=== PATIENT | female | born 1960 | race Caucasian/White ===

== ENCOUNTER 2016-12-26 15:29 | Outpatient (CLI) | payer MEDICAID ==
[2016-12-26 19:21] LABS: BASOPHILS % (AUTO) 0.1 %; EOSINOPHILS # (AUTO) 0.1 10^3/uL (0.0-0.7); HCT - HEMATOCRIT 42.5 % (37.0-47.0); LYMPHOCYTES # (AUTO) 2.9 10^3/uL (1.5-3.5); LYMPHOCYTES % (AUTO) 28.4 %; MEAN CORPUSCULAR HEMOGLOBIN 29.3 pg (27.0-31.0); MEAN CORPUSCULAR HGB CONC 32.9 g/dL (32.0-36.0); MEAN CORPUSCULAR VOLUME 89.3 fL (81.0-99.0); MEAN PLATELET VOLUME 9.1 fL (7.9-10.8); MONOCYTES # (AUTO) 0.5 10^3/uL (0.0-1.0); MONOCYTES % (AUTO) 4.9 %; NEUTROPHILS # (AUTO) 6.7 10^3/uL (1.5-6.6); NEUTROPHILS % (AUTO) 65.6 %; RED BLOOD COUNT 4.76 10^6/uL (4.20-5.40); RED CELL DISTRIBUTION WIDTH 13.8 % (12.0-15.0); UNCORRECTED WHITE BLOOD COUNT 10.2 x10^3/uL; WHITE BLOOD COUNT 10.2 x10^3/uL (4.8-10.8)
[2016-12-26 19:30] LABS: ALBUMIN/GLOBULIN RATIO 1.2 (1.0-2.2); BILIRUBIN,TOTAL 0.5 mg/dL (0.2-1.0); BUN - BLOOD UREA NITROGEN 16 mg/dL (6-20); CALCIUM 9.5 mg/dL (8.5-10.3); CARBON DIOXIDE - CO2 26 mmol/L (21-32); CHLORIDE 104 mmol/L (101-111); CHOL/HDL RATIO 3.6 (<4.4); CHOLESTEROL 200 mg/dL; CREATININE 0.9 mg/dL (0.4-1.0); GFR - MDRD 65 (>89); GLUCOSE 104 mg/dL (70-100); HDL CHOLESTEROL 56 mg/dL; LDL/HDL RATIO 2.1 (<4.4); POTASSIUM 4.3 mmol/L (3.5-5.0); SODIUM 138 mmol/L (135-145); TOTAL PROTEIN 7.8 g/dL (6.7-8.2); TRIGLYCERIDES 135 mg/dL; VLDL CHOLESTEROL 27 mg/dL
== END 2016-12-26 15:30 | disposition home or self-care (01) ==
LOC: LAB.N 15:29
PROVIDERS: ATTEND Nurse Practitioner Gerontology
DX: Z13.9 Encounter for screening, unspecified (principal)
CPT/HCPCS: 36415; 80053; 80061; 84443; 85025

== ENCOUNTER 2017-02-23 08:07 | Outpatient (CLI) | payer MEDICAID ==
[2017-02-23 13:15] LABS: CORTISOL 15.3 ug/dL
[2017-02-23 13:47] LABS: FOLLICLE STIMULATING HORMONE 72.93 mIU/mL
[2017-02-23 13:48] LABS: LUTEINIZING HORMONE 51.91 mIU/mL
== END 2017-02-23 08:08 | disposition home or self-care (01) ==
LOC: LAB.N 08:07
PROVIDERS: ATTEND Nurse Practitioner Gerontology
DX: N95.1 Menopausal and female climacteric states (principal)
CPT/HCPCS: 36415; 82533; 82670; 83001; 83002

== ENCOUNTER 2017-07-27 10:18 | Outpatient (CLI) | payer MEDICAID ==
[2017-07-27 12:56] LABS: ALBUMIN 4.1 g/dL (3.2-5.5); ALBUMIN/GLOBULIN RATIO 1.2 (1.0-2.2); ALKALINE PHOSPHATASE 42 IU/L (42-121); ALT ALANINE AMINOTRANSFERASE 26 IU/L (10-60); AST ASPARTATE AMINOTRANSFERASE 21 IU/L (10-42); BASOPHILS % (AUTO) 0.4 %; BILIRUBIN,TOTAL 0.4 mg/dL (0.2-1.0); BUN - BLOOD UREA NITROGEN 14 mg/dL (6-20); CALCIUM 8.9 mg/dL (8.5-10.3); CARBON DIOXIDE - CO2 25 mmol/L (21-32); CHLORIDE 105 mmol/L (101-111); CHOLESTEROL 206 mg/dL; CREATININE 0.8 mg/dL (0.4-1.0); EOSINOPHILS # (AUTO) 0.1 10^3/uL (0.0-0.7); EOSINOPHILS % (AUTO) 1.2 %; GFR - MDRD 74 (>89); GLUCOSE 87 mg/dL (70-100); HDL CHOLESTEROL 52 mg/dL; HGB - HEMOGLOBIN 14.1 g/dL (12.0-16.0); LDL CHOLESTEROL,CALCULATED 136 mg/dL; LDL/HDL RATIO 2.6 (<4.4); LYMPHOCYTES # (AUTO) 2.5 10^3/uL (1.5-3.5); MEAN CORPUSCULAR HEMOGLOBIN 29.5 pg (27.0-31.0); MEAN CORPUSCULAR HGB CONC 33.3 g/dL (32.0-36.0); MEAN CORPUSCULAR VOLUME 88.8 fL (81.0-99.0); MEAN PLATELET VOLUME 8.9 fL (7.9-10.8); MONOCYTES # (AUTO) 0.5 10^3/uL (0.0-1.0); MONOCYTES % (AUTO) 6.4 %; NEUTROPHILS # (AUTO) 5.2 10^3/uL (1.5-6.6); PLT - PLATELET COUNT 315 10^3/uL (130-450); RED BLOOD COUNT 4.76 10^6/uL (4.20-5.40); RED CELL DISTRIBUTION WIDTH 13.8 % (12.0-15.0); SODIUM 136 mmol/L (135-145); TOTAL PROTEIN 7.5 g/dL (6.7-8.2); VLDL CHOLESTEROL 18 mg/dL; WHITE BLOOD COUNT 8.3 x10^3/uL (4.8-10.8)
[2017-07-28 12:07] LABS: HIV AG/AB 4TH GEN NON-REACTIVE (NON-REACTIVE)
[2017-07-28 13:56] LABS: HEPATITIS C ANTIBODY NON-REACTIVE (NON-REACTIVE)
== END 2017-07-27 10:19 | disposition home or self-care (01) ==
LOC: LAB.N 10:18
PROVIDERS: ATTEND Nurse Practitioner Gerontology
DX: R53.83 Other fatigue (principal); Z20.5 Contact with and (suspected) exposure to viral hepatitis
CPT/HCPCS: 36415; 80050; 80061; 86803; 87389

== ENCOUNTER 2019-03-17 10:50 | Outpatient (CLI) | payer MEDICAID ==
[2019-03-17 12:03] VITALS: BP 100/70
--- NOTE | 2019-03-17 12:03 | SLEEP CARE CONSULTATION ---
Information from patient questionnaire entered by Elizabeth Menendez. I have reviewed and concur with the information entered by Elizabeth Menendez. This document represents the service I personally performed and the decisions made by me, Ayala Ba, RN, MSN, [employer] INTEGRATION DEVELOPER. History of Present Illness Reason for Visit: New patient Chief Complaint: reports: Unrefreshed sleep, Excessive daytime sleepiness, Fatigue, Frequent awakenings at night Duration of Symptoms: 2 YEARS and has noted increased with weight gain after smoking cessation. Usual bedtime: 9:30pm Time it takes to fall asleep: 30 MINUTES Snores at night: Yes (loud per stephanie at recent visit) Observed to quit breathing while asleep: Yes (per zaida at recent visit) Sleeps alone due to snoring: Yes (single) Number of times waking at night: 3-4 Reasons for waking at night: reports: Bathroom, Other (UNKNOWN - she will usually be able to return to sleep). denies: Choking, Snoring, Gasping for air, Pain Toss, Turn, or Twitch while sleeping: Yes Recalls having dreams: Yes Usually gets out of bed at: [id number] Feels refreshed in the morning: No Morning headache: No Sleepy or fatigued during the day: Yes Ever fallen asleep while driving: No Takes day naps: Yes Dreams during day naps: Yes Prior sleep studies: No - Parasomnia Symptoms Ever been unable to move upon waking from sleep: No Walks in sleep: No Talks in sleep: Yes (occasionally woken self up from talking) Ever acted out dreams in sleep: No Ever felt weak in the knees when startled or emotional: No Bothered by creepy, crawly, restless sensations in legs: Yes (a few nights a week that feels better when stretches ) Problems with memory or concentration: Yes Subjective Initial [place] Sleepiness Scale score: 9 Past Medical History Past Medical History: reports: Anxiety (GRADUATED FROM COUNSELING REGARDING THIS), Depression (denies suicide ideology) Social History 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 Patient is Single and lives in [place]. Have you smoked in the past 12 months: Yes (Quit May 30, 2018) Cigarettes per day (20/pack): 20 Years of smokin (OFF AND ON) Quit date: 05/2018 Smoking Pack Years: 30.0 Alcohol use: No Caffeine use: Yes Caffeine amount and frequency: 1-2 CUPS/DAY Family History Family history of sleep disordered breathing: Yes Family Hx Sleep Apnea: Father: Snoring, Sleep apnea - Untreated Allergies and Home Medications Known drug allergies: No Home medication list reviewed: Yes Allergy and home medication list: citalopram 30mg daily Vitamin D3, K2 unknown daily Krill oil daily chromium piconate daily Review of Systems Psychiatric: reports: anxiety, depression Ear/Nose/Throat: reports: wisdom teeth removed Endocrine: reports: sluggishness, too hot or cold (hot flashes from menopause ) Musculoskeletal: reports: muscle pain or cramping (calve cramps nightly since Keto diet) Physical Exam Blood Pressure: 100/70 Cuff size: long Heart Rate: 75 O2 Saturation: 96 Height: 5 ft 2 in Weight (kg): 192 lb 3.2 oz Body Mass Index: 35.2 BMI Classification: Class 2 HEENT: No craniofacial malformation Nostrils: partially obstructed (left nostril) Turbinates: swollen Septum: deviated right Mouth and throat: narrow oropharynx Soft palate: long Hard palate: normal Uvula: normal Uvula visualization: 25% Mallampati Class III Tongue: normal in size Tonsils: small Chin and jaw: normal size and position Neck: normal w/o lymphadenopathy or thyromegaly Heart: regular rate and rhythm Lungs: clear bilaterally Extremities: no edema or clubbing Neurologic: other: (alert and orientated) Impression and Plan 1. Suspected Obstructive Sleep Apnea-Hypopnea Syndrome, as suggested by a history of loud and irregular snoring, observed cessation of breath while asleep, frequent awakening during the night, unrefreshed sleep, cognitive impairment, and excessive daytime sleepiness. Narrow oropharynx and obesity are common predisposing factors for obstructive sleep apnea-hypopnea syndrome. I recommend proceeding to polysomnography to confirm the diagnosis and to assess severity. If the patient has significant sleep disordered breathing, a manual CPAP titration study will also be performed to find the optimal treatment pressure. I informed the patient of what the sleep studies involve and after some discussion, obtained agreement to proceed. The pathophysiology of obstructive sleep apnea-hypopnea syndrome was discussed with the patient and health risks of cardiovascular and cerebrovascular disease if not treated. AASM brochure for obstructive sleep apnea-hypopnea syndrome given and reviewed. Risks of drowsy driving discussed in detail and patient advised to avoid long distance driving and to bone char puller at the first sign of drowsiness. Patient agreed to plan. 2. Insomnia, due to unknown and too much time in bed. She was advised that most people require 7-9 hours of sleep and how too much time in bed can decrease sleep efficiency. Thus she is advised to reduce time in bed to 8 hours and get up at a regular time no matter how she slept. No napping unless over come with sleepiness and limited to one hour and before 3pm so not to interfere with nightime sleep. 3. Restless Leg Syndrome (RLS): as exhibited by an urge to move the legs and generally involves symptoms of uncomfortable and unpleasant sensations. Symptoms usually begin or worsen with inactivity or periods of rest such as sitting or lying down. These symptoms can be partially or completely relieved with movement such as stretching, walking or other movement. Generally they occur late in the evening or at bedtime. Sometimes the urge to move legs can be without discomfort or involve the arms and other parts of the body. Symptoms can cause patient concern and difficulty initiating sleep affecting daytime functioning. RLS is a sensorimotor disorder that can be hereditary and is often associated with PLMS periodic limb movement of sleep. It can also be secondary to mild iron deficiency (serum ferritin less than 50mcg - 75mcg/L) and magnesium deficiencies. Other medical conditions associated with RLS are narcolepsy, migraine headaches, chronic obstructive pulmonary disease, Parkinson disease, multiple sclerosis, peripheral neuropathy, obstructive sleep apnea, diabetes mellitus, fibromyalgia, rheumatoid arthritis, nocturnal eating, obesity, thyroid disease and heart disease and renal failure as well as mood disorders and ADHD. Also, medications such as most antidepressants with exception of bupropion, some centrally active dopamine receptor antagonists, sedating antihistamines such as Benadryl can precipitate or aggravate this disorder. Other factors that can increase symptoms are sleep deprivation, caffeine, nicotine and alcohol use. I recommend ruling out these conditions if not already done. AAS Restless Leg syndrome pamphlet given and reviewed. 4. Leg cramps, are painful sensations that are caused by sudden and intense involuntary contractions of the muscles or muscle groups from a spasm and hardness for several seconds that are generally in the calf of small muscle of the foot. These occur during time while in bed and can arise from sleep or wakefulness. The cramps may be relieved by massage, application of heat or stretching and movement of the affected limb. These can disrupt sleep and be a cause of insomnia. Cause of sleep related sleep cramps can be idiopathic or secondary to other medical conditions such as chronic myelopathy, peripheral neuropathy, muscular pain fasciculation syndrome and disorders of calcium metabolism. It is sometimes confused with restless leg syndrome, and the description of an actual spasm or hardening of the muscled is the critical differentiating factor for nocturnal leg cramps. Predisposing factors for leg cramps can include diabetes, amyotrophic lateral sclerosis, cramp fasciculation syndrome, peripheral vascular disease, hypokalemia, hypocalcemia, hypomagnes aemia, and metabolic disorders. Nocturnal leg cramps can also be associated with vigorous exercise, prolonged standing at work, dehydration, fluid and electrolyte disturbances, endocrine disorders, neuromuscular disorders, disorders of reduced mobility, vascular disease, cirrhosis, and hemodialysis. Nocturnal leg cramps can also be associated with medications such as oral contraceptives, intravenous iron sucrose, teriparatide, raloxifene, diuretics, long-acting B-agonists, and statins. ( preceding cramp information obtained from [facility]) I advised patient to follow up with her PCP for further evaluation and patient agreed with plan. * Schedule polysomnography +- manual CPAP titration study. * Avoid long distance driving or driving when feeling sleepy. * Avoid alcohol, sedative and muscle relaxant around bedtime. * Attempt to lose weight. * Review instructions provided by trained office staff on how to prepare for the sleep study. * Follow up with PCP for further evaluation of memory concerns , nocturnal leg cramps and RLS etiology. * Return for follow-up after sleep study completed. I spent 100% of this [15][30] minute visit face to face with the patient with greater than 50% of this was spent time counseling the patient and coordination of care.
== END 2019-03-17 10:51 | disposition home or self-care (01) ==
LOC: SC 10:50
PROVIDERS: ATTEND Nurse Practitioner Family
DX: G47.10 Hypersomnia, unspecified (principal); R06.81 Apnea, not elsewhere classified; G47.8 Other sleep disorders; R06.83 Snoring; R41.89 Other symptoms and signs involving cognitive functions and awareness; G47.00 Insomnia, unspecified
CPT/HCPCS: 99204; 99212

== ENCOUNTER 2019-04-06 20:38 | Outpatient (CLI) | payer MEDICAID | END 2019-04-06 20:39 | disposition home or self-care (01) | LOC: SC 20:38 | PROVIDERS: ATTEND Internal Medicine Pulmonary Disease | DX: G47.33 Obstructive sleep apnea (adult) (pediatric) (principal); G47.61 Periodic limb movement disorder; E66.9 Obesity, unspecified; Z68.35 Body mass index [BMI] 35.0-35.9, adult | CPT/HCPCS: 95810 ==

== ENCOUNTER 2019-04-28 16:08 | Outpatient (CLI) | payer MEDICAID ==
[2019-04-28 17:22] VITALS: BP 100/60
--- NOTE | 2019-04-28 17:23 | SLEEP CARE CONSULTATION ---
Information from patient questionnaire entered by Laila aDvis. I have reviewed and concur with the information entered by Laila Davis. This document represents the service I personally performed and the decisions made by me, Ayala Ba RN, MSN, HEALTH INFORMATICS SPECIALIST. History of Present Illness Initial [place] Sleepiness Scale score: 9 Current [place] Sleepiness Scale score: 8 Additional HPI information: SOBEIDA JONES returns for follow up of the recently performed polysomnography and informed of findings. I explained the pathophysiology behind obstructive sleep apnea. We then spent quite a bit of time discussing different treatment options. For mild obstructive sleep apnea, surgery and oral appliance are alternatives to nasal CPAP therapy but in moderate or severe cases, nasal CPAP is the most effective and reliable treatment. I reviewed the impact of weight changes on sleep apnea and strongly recommended losing weight. After some discussion, the patient opted to go with the nasal CPAP therapy. Nasal autoCPAP set at [id number] will be ordered with rationale explained. A manual titration study will be ordered if unable to find optimal pressure with office adjustments. I explained how CPAP machine works with sample devices [employer] Dreamstation and [id number] and what to expect when using the machine. Using CPAP every night in order to get used to it was emphasized. Patient advised to put CPAP mask on before getting into bed so as not to fall asleep without CPAP. To assist acclimation to CPAP use, it could also be used for a short time during day while reading or watching TV. The patient was instructed to call the CPAP supplier to discuss any mechanical problem that may occur. If the mask given is uncomfortable or is difficult to keep on through the night even with adjustment, contact the CPAP supplier as many will replace with another mask style if notified before 30 days. If snoring or perceives is not getting enough air or too much air from the machine, notify this office. AAS patient education PAP tips reviewed and given to patient. Patient counseled not drink alcohol less than 4 hours before bedtime as it can increase snoring and apnea. Patient does not drink alcohol. Patient was cautioned about risks of drowsy driving until sleepiness symptoms resolve. Patient denies drowsy driving. Sleep Study - Polysomnography Polysomnography findings: The quality of the study is good. The patient had normal sleep efficiency. Except for mild sleep fragmentation, the sleep architecture was normal as well.. Respiratory monitoring showed mild obstructive sleep apnea-hypopnea (AHI = 11.0) associated with frequent arousals, oxyhemoglobin desaturation and mild hypoxia (reema oxygen saturation of 87%). The respiratory events occurred mainly during supine sleep and REM sleep (supine AHI = 38.9; non-supine = 5.77). Snore was moderate in intensity. There was moderate periodic leg movement of sleep contributing to the sleep fragmentation. Cardiac rhythm was normal sinus rhythm without significant arrhythmia. No abnormal behavior (parasomnia) observed during the night. Allergies and Home Medications Known drug allergies: No Home medication list reviewed: Yes (no changes from initial visit. ) Review of Systems Review of systems same as previous: Yes Physical Exam Blood Pressure: 100/60 Cuff size: long Heart Rate: 80 O2 Saturation: 96 Height: 5 ft 2 in Weight: 193 lb 12.8 oz Body Mass Index: 35.4 BMI Classification: Obesity Class 2 Impression and Plan 1. Obstructive Sleep Apnea-Hypopnea Syndrome, mild but severe in supine position, with lowest oxygen saturation of 97%. Possibly this is the cause of the patients symptoms of unrefreshed sleep, and excessive daytime sleepiness. Positive pressure therapy could benefit her anxiety and depression. As mentioned above, the patient will be started on nasal autoCPAP therapy with pressure set at 4-15 cmH2O. A manual titration study will be completed if unable to find optimal treatment pressure with office adjustments. Compliance guidelines also reviewed. A copy of compliance guidelines will be given for reference at check out. Because the apnea is more severe supine, I instructed to avoid sleeping supine using pillow positioning until able to start CPAP use. 2. Periodic limb movement, moderate, that did not fragment patients sleep. Periodic limb movement of sleep (PLMS) is characterized by episodes of repetitive limb movements that occur during sleep and usually involve the lower limbs. The etiology is unknown but can be associated with restless leg syndrome (RLS), neuropathy, spinal cord diseases, kidney disease, rheumatological disorders, narcolepsy, obstructive sleep apnea, and REM sleep behavior disorder. Other factors that can increase PLMS and/or RLS are heredity and iron deficiency as reflected by a low serum ferritin level below 50 to 75mcg / L. Several medications can precipitate or aggravate PLMS such as selective serotonin re- uptake inhibitor antidepressants, tricyclic antidepressants, lithium, and dopamine receptor antagonists with the exception of bupropion. Caffeine can also aggravate PLMS and should be avoided. Sleep hygiene methods can also improve sleep as well as lifestyle changes such as regular exercise. Patient was advised that further evaluation is indicated due to RLS symptoms 4-5 times a week. She is to follow up with PCP for further evaluation to see if from iron deficiency anemia or from her antidepressant. Bupropion is the only antidepressant that does not augment symptoms. Nasal auto CPAP therapy, pressure at 4-15cm H2O. * Attempt to lose weight. * Avoid alcohol consumption near bedtime. * Avoid supine sleep until using CPAP. * The patient is again cautioned about driving until sleepiness completely resolves. * Follow up with PCP for further evaluation of PLMS / RLS etiology as noted above. * Return one month after CPAP obtained. I will assess response to therapy and compliance at that time. I spent 100% of this 37 minute visit face to face with the patient with greater than 50% of this was spent time counseling the patient and coordination of care.
== END 2019-04-28 16:09 | disposition home or self-care (01) ==
LOC: SC 16:08
PROVIDERS: ATTEND Nurse Practitioner Family
DX: G47.33 Obstructive sleep apnea (adult) (pediatric) (principal); G47.61 Periodic limb movement disorder; E66.9 Obesity, unspecified; Z68.35 Body mass index [BMI] 35.0-35.9, adult
CPT/HCPCS: 99212; 99214

== ENCOUNTER 2019-05-07 10:36 | Outpatient (CLI) | payer MEDICAID ==
--- NOTE | 2019-05-08 09:53 | CT Report ---
Reason: TOBACCO DEPENDENCE Procedure Date: 05/07/2019 Accession Number: [id number] / [id number] Procedure: CT - Low Dose Lung Cancer Screen CPT Code: FULL RESULT: EXAM CT LUNG SCREEN EXAM DATE: 05/07/2019 10:55 AM. HISTORY: 58-year-old patient with 35-year smoking history. Currently smoking: No. Years since quittin. COMPARISON: None. TECHNIQUE: CT examination of the entire thorax without contrast was performed using low-dose technique. Thin section coronal, axial, sagittal and MIP axial images were obtained. In accordance with CT protocol optimization, one or more of the following dose reduction techniques were utilized for this exam: automated exposure control, adjustment of mA and/or KV based on patient size, or use of iterative reconstructive technique. FINDINGS: Nodules: Right upper lobe: None. Right middle lobe: None. Right lower lobe: None. Left upper lobe: 3 mm calcified granuloma in the superior lingula (). Left lower lobe: None. Emphysema: None. Pleura: Unremarkable. Aorta: 4.2 cm diameter fusiform ectasia of the ascending aorta. Mild calcification in the ascending aorta. No aortic valve calcification. Mediastinum: Unremarkable. Coronary calcifications: Mild LAD. Other pulmonary findings: Tiny subpleural lymph node along the minor fissure (65, ). Minimal bandlike scarring or atelectasis in the right middle lobe and lingula. Other extrapulmonary findings: Tiny layering calcified gallstones. Mild multilevel mid to lower thoracic degenerative disk disease. IMPRESSION: 1. 3 mm calcified granuloma in the superior lingula. 2. 4.2 cm diameter fusiform ectasia of the ascending aorta. 3. Mild LAD coronary artery calcification. 4. Cholelithiasis. Lung-RADS ASSESSMENT CATEGORY: Oh - benign appearance or behavior. Probability of malignancy: Less than 1%. RECOMMENDATION: Annual low-dose lung CT screening. [facility]
== END 2019-05-07 10:37 | disposition home or self-care (01) ==
LOC: DI 10:36
PROVIDERS: ATTEND Nurse Practitioner Gerontology
DX: Z12.2 Encounter for screening for malignant neoplasm of respiratory organs (principal); J84.10 Pulmonary fibrosis, unspecified; I77.810 Thoracic aortic ectasia; I25.10 Atherosclerotic heart disease of native coronary artery without angina pectoris; K80.20 Calculus of gallbladder without cholecystitis without obstruction; Z87.891 Personal history of nicotine dependence

== ENCOUNTER 2019-11-10 16:51 | Outpatient (CLI) | payer MEDICAID ==
--- NOTE | 2019-11-10 16:38 | SLEEP CARE CONSULTATION ---
Information from patient questionnaire entered by Elizabeth Menendez. I have reviewed and concur with the information entered by Elizabeth Menendez. This document represents the service I personally performed and the decisions made by me, Ayala Ba, RN, MSN, GRAPE GROWER. History of Present Illness Service Date and Time: 11/10/2019 1600 Previous diagnosis: Mild, Obstructive Sleep Apnea-Hypopnea Syndrome AHI: 11.0 Reason for follow up: first compliance Equipment type: CPAP Equipment obtained from: [employer] Mask style: Full face Backup mask available: No (please keeep current mask as a spare when replaced) Last cushion change: not since set up - insurance replacement is not for 3 months Type of Sleep Study: Polysomnography CPAP Compliance Data - Data Reviewed with Patient Average duration of nightly device use: 9H 0M Compliance rate %: 100 Current pressure setting (cmH2O): 4-15 Humidity setting: ? Heated hose setting: ? Average residual AHI: 3.2 (med 7.1cm / 95th % 10.9cmH20) Average large leak: zero Subjective Patient concerns: reports: condensation in mask/hose (mild in mask ). denies: aerophagia, mask discomfort, air blowing in eyes, mask leak noise, nasal congestion, dry mouth, nose, throat, epistaxis, other Observed to snore while using device: No (single ) Current pressure setting perceived as: comfortable On therapy, patient: reports: sleeping better, awakening more refreshed, being more awake and alert during the day, more rested overall. denies: drowsiness while driving Initial [place] Sleepiness Scale score: 9 Allergies and Home Medications Home medication list reviewed: No (started Well butrin and stopped amytriptyline as not needed for sleep) Review of Systems Review of systems same as previous: Yes Physical Exam Height: 5 ft 2 in Weight: 198 lb (home weight) Body Mass Index: 36.2 BMI Classification: Obese Impression and Plan 1. Obstructive Sleep Apnea-Hypopnea Syndrome, mild , with good treatment compliance and good apnea control. On CPAP therapy, the patient has better sleep quality and is more rested overall. Patient is very pleased with CPAP treatment. In fact, she was able to stop use of amitriptyline used previously to get to sleep. To reduce condensation, I will have [employer] call to verbally instruct how to adjust settings. Rationale of why to change settings discussed. Patient has gained weight. About 10 pounds increasing patients BMI to 36.2 obesity class . Obesity increases the risk of apnea, CPAP pressure requirements and overall health risks especially cardiovascular and diabetes. Thus patient is advised to continue to lose weight. Weight loss can be done with reducing portion size, reducing refined foods and balancing content with vegetables, fruit and protein. In addition tracking food intake will allow awareness of how to modify diet to achieve weight loss goals. Also eating more slowly will allow more awareness of food intake and enjoyment of food while assisting patient to modify intake at each meal. A diet consultation can be helpful in achieving optimal weight loss goals. Patient encouraged to discuss their weight loss goa ls with their PCP and consider a referral to a roller. Patient agreed with plan. The patient's CPAP pressure range should accommodate some weight loss. Symptoms to report for additional pressure adjustment discussed. Patient's apnea severity and rationale for treatment to reduce apnea, improve sleep quality and reduce hypertension, cardiovascular and cerebrovascular events was reviewed. * Changeauto CPAP pressure to 7-11 cmH2O * Notify me if snoring with mask or feeling that the pressure is too much or too little * Attempt to lose weight * Call this office if any problems using CPAP * Return for follow up in 3 months , or sooner if concerns arise Visit Type: Telehealth Video (to reduce risk of Covid 19 exposure) Video Type: [employer] Location of Provider: Home Patient agrees and consents to this telehealth visit type: Yes Patient agrees to have their insurance billed: Yes Time Spent with Patient (minutes): 20 Provider Statement: I spent 100% of the Telehealth Video Call with the patient with greater than 50% spent counseling the patient and coordination of care.
== END 2019-11-10 16:52 | disposition home or self-care (01) ==
LOC: SC 16:51
PROVIDERS: ATTEND Nurse Practitioner Family
DX: G47.33 Obstructive sleep apnea (adult) (pediatric) (principal); E66.9 Obesity, unspecified; Z68.36 Body mass index [BMI] 36.0-36.9, adult

== ENCOUNTER 2020-02-11 14:48 | Outpatient (CLI) | payer MEDICAID ==
[2020-02-11 15:22] VITALS: BP 110/78
--- NOTE | 2020-02-11 15:22 | SLEEP CARE CONSULTATION ---
Information from patient questionnaire entered by Elizabeth Menendez. I have reviewed and concur with the information entered by Elizabeth Menendez. This document represents the service I personally performed and the decisions made by me, Ayala Ba, RN, MSN, TOWBOAT OPERATOR. History of Present Illness Service Date and Time: 02/11/2020 1448 Previous diagnosis: Mild, Obstructive Sleep Apnea-Hypopnea Syndrome AHI: 11 Reason for follow up: three month (with pressure change) Equipment type: CPAP Equipment obtained from: [employer] (getting supplies) Mask style: Full face Backup mask available: No (keep current mask when replaced as spare ) Last cushion change: 2 weeks ago Prior sleep studies: Yes [facility] Type of Sleep Study: Polysomnography HPI additional information: Condensation resolved. CPAP Compliance Data - Data Reviewed with Patient Average duration of nightly device use: 8h 18m Compliance rate %: 100 Current pressure setting (cmH2O): 7-11 Humidity setting: auto Heated hose setting: auto Average residual AHI: 2.8 (95th pressure 10.6cmH20) Average large leak: zero Subjective Patient concerns: denies: aerophagia, mask discomfort, air blowing in eyes, mask leak noise, condensation in mask/hose, nasal congestion, dry mouth, nose, throat, epistaxis Initial [place] Sleepiness Scale score: 9 Allergies and Home Medications Known drug allergies: No Home medication list reviewed: No (no changes ) Review of Systems Review of systems same as previous: Yes Physical Exam Blood Pressure: 110/78 Cuff size: long Heart Rate: 71 O2 Saturation: 98 Height: 5 ft 2 in Weight: 189 lb Weight change since last visit: lost 15 pounds since starting CPAP Body Mass Index: 34.5 BMI Classification: Obese Impression and Plan 1. Obstructive Sleep Apnea-Hypopnea Syndrome, mild, with good treatment compliance and good apnea control. On CPAP therapy, the patient has better sleep quality and is more rested overall. Since patient has more severe apnea in supine position, patient advised to avoid supine sleep with pillow positioning if unable to use CPAP while ill or if without electricity to reduce apnea risk. Patient has lost 15 pounds since starting CPAP and plans on losing 40 more pounds bringing BMI to 29. I again reviewed symptoms to report for pressure change if indicated as she continues to lose weight. Her current pressure range should accomodate some weight loss. Patient's apnea severity and rationale for treatment to reduce apnea, improve sleep quality and reduce cardiovascular and cerebrovascular events was reviewed. I also reviewed the benefit of consistent device use of CPAP for depression/anxiety. She has noted the ability to pursue activities now and more energy to engage in physical activity. * Continue auto CPAP pressure at 7-11 cmH2O * Notify me if snoring with mask or feeling that the pressure is too much or too little * Continue to lose weight * Call this office if any problems using CPAP * Return for follow up in 6 months , or sooner if concerns arise Visit Type: In Office Time Spent with Patient (minutes): 20 Provider Statement: I spent 100% of the Face to Face Visit with the patient with greater than 50% spent counseling the patient and coordination of care.
== END 2020-02-11 14:49 | disposition home or self-care (01) ==
LOC: SC 14:48
PROVIDERS: ATTEND Nurse Practitioner Family
DX: G47.33 Obstructive sleep apnea (adult) (pediatric) (principal); E66.9 Obesity, unspecified; Z68.34 Body mass index [BMI] 34.0-34.9, adult
CPT/HCPCS: 99212; 99213

== ENCOUNTER 2020-09-17 19:11 | Emergency (ER) | payer MEDICAID ==
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
[2020-09-17 19:46] LABS: BASOPHILS % (AUTO) 0.1 %; EOSINOPHILS # (AUTO) 0.2 10^3/uL (0.0-0.7); EOSINOPHILS % (AUTO) 2.3 %; HCT - HEMATOCRIT 41.2 % (37.0-47.0); HGB - HEMOGLOBIN 13.5 g/dL (12.0-16.0); LYMPHOCYTES # (AUTO) 2.7 10^3/uL (1.5-3.5); LYMPHOCYTES % (AUTO) 29.7 %; MEAN CORPUSCULAR HEMOGLOBIN 29.9 pg (27.0-31.0); MEAN CORPUSCULAR HGB CONC 32.8 g/dL (32.0-36.0); MEAN CORPUSCULAR VOLUME 91.2 fL (81.0-99.0); MEAN PLATELET VOLUME 9.4 fL (7.9-10.8); MONOCYTES # (AUTO) 0.7 10^3/uL (0.0-1.0); MONOCYTES % (AUTO) 7.2 %; NEUTROPHILS # (AUTO) 5.5 10^3/uL (1.5-6.6); NEUTROPHILS % (AUTO) 60.2 %; PLT - PLATELET COUNT 358 10^3/uL (130-450); RED BLOOD COUNT 4.52 10^6/uL (4.20-5.40); RED CELL DISTRIBUTION WIDTH 13.2 % (12.0-15.0); WHITE BLOOD COUNT 9.2 x10^3/uL (4.8-10.8)
[2020-09-17 19:58] LABS: ALBUMIN 4.3 g/dL (3.2-5.5); ALBUMIN/GLOBULIN RATIO 1.2 (1.0-2.2); BILIRUBIN,TOTAL 0.4 mg/dL (0.2-1.0); CREATININE 1.2 mg/dL (0.4-1.0); POTASSIUM 3.9 mmol/L (3.5-5.0); TOTAL PROTEIN 7.8 g/dL (6.7-8.2)
--- NOTE | 2020-09-17 20:25 | CT Report ---
PROCEDURE: HEAD WO INDICATIONS: headache TECHNIQUE: Noncontrast 4.5 mm thick angled axial sections acquired from the foramen magnum to the vertex. For r adiation dose reduction, the following was used: automated exposure control, adjustment of mA and/or kV according to patient size. COMPARISON: None. FINDINGS: Image quality: Excellent. CSF spaces: Basal cisterns are patent. No extra-axial fluid collections. Ventricles are normal in size and shape. Brain: No midline shift. No intracranial masses or hemorrhage. [place]o-white matter interface is norm al. Skull and face: Calvarium and visualized facial bones are intact, without suspicious lesions. Mild left temporal soft tissue edema suggests of contusion. Sinuses: Visualized sinuses and mastoids are clear. IMPRESSION: 1. No acute intracranial process. 2. Mild left temporal soft tissue edema. Reviewed by: Sasha Pineda MD on 09/17/2020 8:24 PM PST Approved by: Sasha Pineda MD on 09/17/2020 8:24 PM PST Station ID: [id number]
[2020-09-17 20:39] VITALS: BP 140/70
== END 2020-09-17 20:38 | disposition home or self-care (01) ==
LOC: ED 19:11
DX: R42 Dizziness and giddiness (principal); S09.90XA Unspecified injury of head, initial encounter; W18.39XA Other fall on same level, initial encounter; W22.8XXA Striking against or struck by other objects, initial encounter; Y93.01 Activity, walking, marching and hiking; Y92.832 Beach as the place of occurrence of the external cause
CPT/HCPCS: 36415; 80053; 85025; 93005; 99284

== ENCOUNTER 2020-11-26 08:00 | Outpatient (CLI) | payer MEDICAID ==
[2020-11-26 17:51] LABS: BASOPHILS % (AUTO) 0.3 %; EOSINOPHILS # (AUTO) 0.2 10^3/uL (0.0-0.7); EOSINOPHILS % (AUTO) 1.7 %; HCT - HEMATOCRIT 44.1 % (37.0-47.0); HGB - HEMOGLOBIN 13.8 g/dL (12.0-16.0); LYMPHOCYTES # (AUTO) 2.5 10^3/uL (1.5-3.5); LYMPHOCYTES % (AUTO) 28.4 %; MEAN CORPUSCULAR HEMOGLOBIN 29.2 pg (27.0-31.0); MEAN CORPUSCULAR HGB CONC 31.3 g/dL (32.0-36.0); MEAN CORPUSCULAR VOLUME 93.2 fL (81.0-99.0); MEAN PLATELET VOLUME 10.5 fL (7.9-10.8); MONOCYTES # (AUTO) 0.6 10^3/uL (0.0-1.0); MONOCYTES % (AUTO) 6.4 %; NEUTROPHILS # (AUTO) 5.5 10^3/uL (1.5-6.6); NEUTROPHILS % (AUTO) 62.6 %; PLT - PLATELET COUNT 379 10^3/uL (130-450); RED BLOOD COUNT 4.73 10^6/uL (4.20-5.40); RED CELL DISTRIBUTION WIDTH 13.2 % (12.0-15.0); WHITE BLOOD COUNT 8.8 x10^3/uL (4.8-10.8)
[2020-11-26 18:11] LABS: ALBUMIN 4.6 g/dL (3.2-5.5); ALBUMIN/GLOBULIN RATIO 1.4 (1.0-2.2); ALKALINE PHOSPHATASE 44 IU/L (42-121); ALT ALANINE AMINOTRANSFERASE 32 IU/L (10-60); AST ASPARTATE AMINOTRANSFERASE 26 IU/L (10-42); BILIRUBIN,TOTAL 0.9 mg/dL (0.2-1.0); BUN - BLOOD UREA NITROGEN 13 mg/dL (6-20); CALCIUM 9.7 mg/dL (8.5-10.3); CARBON DIOXIDE - CO2 27 mmol/L (21-32); CHLORIDE 100 mmol/L (101-111); CHOL/HDL RATIO 3.8 (<4.4); CHOLESTEROL 239 mg/dL; CREATININE 0.8 mg/dL (0.4-1.0); GFR - MDRD 73 (>89); GLUCOSE 94 mg/dL (70-100); HDL CHOLESTEROL 63 mg/dL; LDL CHOLESTEROL,CALCULATED 156 mg/dL; LDL/HDL RATIO 2.5 (<4.4); POTASSIUM 4.3 mmol/L (3.5-5.0); SODIUM 138 mmol/L (135-145); TOTAL PROTEIN 7.9 g/dL (6.7-8.2); TRIGLYCERIDES 102 mg/dL; VLDL CHOLESTEROL 20 mg/dL
[2020-11-26 18:20] LABS: THYROID STIMULATING HORMONE 1.07 uIU/mL (0.34-5.60)
== END 2020-11-26 08:01 | disposition home or self-care (01) ==
LOC: LAB.WCP 08:00
PROVIDERS: ATTEND Physician Assistant Medical
DX: Z00.00 Encounter for general adult medical examination without abnormal findings (principal); E78.00 Pure hypercholesterolemia, unspecified
CPT/HCPCS: 36415; 80050; 80061; 83721

== ENCOUNTER 2021-08-09 11:27 | Emergency (ER) | payer MEDICAID ==
[2021-08-09 11:47] VITALS: BP 128/76
--- NOTE | 2021-08-09 12:06 | ED Physician Documentation ---
History of Present Illness - Stated complaint Stated Complaint: CHEST PX/PULSING/SOA - Chief complaint Chief Complaint: General - History obtained from History obtained from: Patient - History of Present Illness Timing: Today - Additonal information Additional information: 60-year-old female who has a lot of underlying stress and has developed anxiety and anxiety attacks is developed numbness and tingling to her fingertips and some pain in her forearms and arms. She was asked by her friend to come to the emergency department for evaluation when she developed the cramping in the arms. She has had similar similar symptoms repeatedly with the exception of the arm cramping since her daughter of a drug overdose more than a year ago. She is taking care of her grandchildren and her father. Review of Systems Constitutional: denies: Fever Eyes: denies: Decreased vision Ears: denies: Ear pain Throat: denies: Sore throat Cardiac: reports: Chest pain / pressure. denies: Palpitations Respiratory: denies: Dyspnea, Cough GI: denies: Abdominal Pain, Nausea, Vomiting : denies: Dysuria, Frequency, Discharge Skin: denies: Rash Musculoskeletal: reports: Extremity pain. denies: Neck pain, Back pain Neurologic: reports: Numbness. denies: Generalized weakness, Focal weakness, Difficulty speaking, Altered mental status, Headache, Head injury, LOC PD PAST MEDICAL HISTORY - Past Medical History Psych: Depression - Past Surgical History Past Surgical History: No - Present Medications Home Medications: Ambulatory Orders Medication Instructions Recorded Confirmed LORazepam [Ativan] 1 mg PO Q6HR PRN #14 tablet 08/09/21 - Allergies Allergies/Adverse Reactions: Allergies Allergy/AdvReac Type Severity Reaction Status Date / Time No Known Drug Allergies Allergy Verified 09/17/20 19:23 - Social History Does the pt smoke?: No Does the pt drink ETOH?: No Does the pt have substance abuse?: No - Immunizations Immunizations are current?: Yes PD ED PE NORMAL - Vitals Vital signs reviewed: Yes (Normal) - General General: Alert and oriented X 3, No acute distress, Well developed/nourished - HEENT HEENT: Atraumatic, PERRL, EOMI - Neck Neck: Supple, no meningeal sign, No bony TTP - Cardiac Cardiac: RRR, No murmur - Respiratory Respiratory: No respiratory distress, Clear bilaterally - Abdomen Abdomen: Soft, Non tender - Back Back: No CVA TTP, No spinal TTP - Derm Derm: Normal color, Warm and dry, No rash - Extremities Extremities: No deformity, No edema - Neuro Neuro: Alert and oriented X 3, enlisted advisor 2-12 intact, No motor deficit, No sensory deficit, Normal speech Eye Opening: Spontaneous Motor: Obeys Commands Verbal: Oriented GCS Score: 15 - Psych Psych: Normal mood, Normal affect Results - Vitals Vitals: Vital Signs - 24 hr 08/09/21 11:36 Temperature 36.6 C Heart Rate 76 Respiratory 18 Rate Blood Pressure 128/76 O2 Saturation 98 Oxygen O2 Source Room air - EKG (time done) 1207 Rate: Rate (enter#) (67) Rhythm: NSR Ischemia: Normal ST segments Compare to prior EKG: Unchanged from prior EKG (SPT 09-17-20 no changes) Computer interpretation: Agree with computer PD MEDICAL DECISION MAKING - ED course Complexity details: reviewed old records, reviewed results, re-evaluated patient, considered differential, d/w patient ED course: 60-year-old female with a history of anxiety and panic attacks presents to the emergency department at the insistence of her friend for pain in her upper arms and forearms. She is describing carpopedal spasm associated with hyperventilation syndrome and she is currently asymptomatic. She is relieved to have some medication to treat her acute anxiety. She has had medication for chronic anxiety both citalopram and bupropion. She is having breakthrough anxie ty on those medications and she has an appointment to see Nadira Jordan on the . I discussed with the patient the nature of hyperventilation syndrome and she is quite confident her symptoms are all related to this. I have offered to prescribe a as needed course of Ativan and the patient is grateful for this. Departure - Departure Disposition: Home, Self Care Clinical Impression: Hyperventilation syndrome Condition: Stable Instructions: ED Stress React, ED Hyperventilation Syndrome, ED Panic Attack Follow-Up: Nguyen Jordan PA-C [Primary Care Provider] - Prescriptions: LORazepam [Ativan] 1 mg PO Q6HR PRN #14 tablet PRN Reason: Anxiety Comments: Venir, today in the emergency department it appears your suffering from hyperventilation syndrome. This occurs from breathing too fast for too long under stress. The symptoms can be ameliorated by use of rebreathing your same air. On days when you have significant symptoms I have prescribed some medication to reduce symptoms. This medication is effective but temporary. It has been e-scribed to [facility] in [place]. Follow up with Nguyen Jordan as planned. Discharge Date/Time: 08/09/21 12:31
== END 2021-08-09 12:31 | disposition home or self-care (01) ==
LOC: ED 11:27
DX: F45.8 Other somatoform disorders (principal); F41.9 Anxiety disorder, unspecified
CPT/HCPCS: 93005; 99283

== ENCOUNTER 2021-09-14 13:13 | Outpatient (CLI) | payer MEDICAID ==
--- NOTE | 2021-09-14 13:58 | XRAY Report ---
PROCEDURE: Chest 2 View X-Ray INDICATIONS: SOB TECHNIQUE: 2 view(s) of the chest. COMPARISON: None. FINDINGS: SUPPORT DEVICES: None. LUNGS/PLEURA: No focal consolidation, pleural effusion or space-occupying pneumothorax. MEDIASTINUM: The cardiomediastinal silhouette is within normal limits. BONES/SOFT TISSUES: No acute abnormality. IMPRESSION: 1.No acute cardiopulmonary abnormality. Reviewed by: Lazarus Valladares MD on 09/14/2021 1:57 PM [facility] Approved by: Lazarus Valladares MD on 09/14/2021 1:57 PM [facility] Station ID: [id number]
== END 2021-09-14 23:59 | disposition home or self-care (01) ==
LOC: DI.N 13:13
PROVIDERS: ATTEND Physician Assistant Medical
DX: R06.02 Shortness of breath (principal); Z86.16 Personal history of COVID-19

== ENCOUNTER 2021-10-28 09:47 | Outpatient (CLI) | payer MEDICAID ==
[2021-10-28 12:34] LABS: BASOPHILS % (AUTO) 0.2 %; EOSINOPHILS # (AUTO) 0.2 10^3/uL (0.0-0.7); EOSINOPHILS % (AUTO) 2.4 %; HCT - HEMATOCRIT 42.7 % (37.0-47.0); HGB - HEMOGLOBIN 13.9 g/dL (12.0-16.0); LYMPHOCYTES # (AUTO) 2.4 10^3/uL (1.5-3.5); LYMPHOCYTES % (AUTO) 29.5 %; MEAN CORPUSCULAR HEMOGLOBIN 29.5 pg (27.0-31.0); MEAN CORPUSCULAR HGB CONC 32.6 g/dL (32.0-36.0); MEAN CORPUSCULAR VOLUME 90.7 fL (81.0-99.0); MEAN PLATELET VOLUME 10.4 fL (7.9-10.8); MONOCYTES # (AUTO) 0.5 10^3/uL (0.0-1.0); MONOCYTES % (AUTO) 6.1 %; NEUTROPHILS # (AUTO) 4.9 10^3/uL (1.5-6.6); NEUTROPHILS % (AUTO) 61.4 %; PLT - PLATELET COUNT 383 10^3/uL (130-450); RED BLOOD COUNT 4.71 10^6/uL (4.20-5.40); RED CELL DISTRIBUTION WIDTH 13.5 % (12.0-15.0)
[2021-10-28 12:41] LABS: ALBUMIN 4.2 g/dL (3.2-5.5); ALBUMIN/GLOBULIN RATIO 1.2 (1.0-2.2); ALKALINE PHOSPHATASE 42 IU/L (42-121); ALT ALANINE AMINOTRANSFERASE 27 IU/L (10-60); AST ASPARTATE AMINOTRANSFERASE 20 IU/L (10-42); BILIRUBIN,TOTAL 0.5 mg/dL (0.2-1.0); BUN - BLOOD UREA NITROGEN 11 mg/dL (6-20); CALCIUM 9.3 mg/dL (8.5-10.3); CARBON DIOXIDE - CO2 27 mmol/L (21-32); CHLORIDE 103 mmol/L (101-111); CHOL/HDL RATIO 4.1 (<4.4); CHOLESTEROL 213 mg/dL; CREATININE 0.9 mg/dL (0.4-1.0); GFR - MDRD 64 (>89); GLUCOSE 116 mg/dL (70-100); HDL CHOLESTEROL 52 mg/dL; LDL CHOLESTEROL,CALCULATED 131 mg/dL; LDL/HDL RATIO 2.5 (<4.4); POTASSIUM 4.4 mmol/L (3.5-5.0); SODIUM 140 mmol/L (135-145); TOTAL PROTEIN 7.7 g/dL (6.7-8.2); TRIGLYCERIDES 150 mg/dL; VLDL CHOLESTEROL 30 mg/dL
[2021-10-28 12:51] LABS: THYROID STIMULATING HORMONE 0.99 uIU/mL (0.34-5.60)
== END 2021-10-28 23:59 | disposition home or self-care (01) ==
LOC: LAB.N 09:47
PROVIDERS: ATTEND Physician Assistant Medical
DX: Z00.00 Encounter for general adult medical examination without abnormal findings (principal); E78.00 Pure hypercholesterolemia, unspecified
CPT/HCPCS: 36415; 80050; 80061; 83721

== ENCOUNTER 2022-03-19 13:15 | Emergency (ER) | payer OTHER, MEDICAID ==
[2022-03-19 13:48] VITALS: BP 146/89
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
--- NOTE | 2022-03-19 15:52 | XRAY Report ---
PROCEDURE: Shoulder 3 View LT INDICATIONS: shoulder inj TECHNIQUE: 3 views of the shoulder were acquired. COMPARISON: None. FINDINGS: Bones: No acute fractures or dislocations. No suspicious bony lesions. Visualized ribs appear inta ct. Moderate joint space narrowing is seen in the glenoid humeral joint. Moderate periventricular de generative changes. Soft tissues: No suspicious soft tissue calcifications. IMPRESSION: Moderate glenohumeral and acromioclavicular osteoarthrosis. No acute osseous abnormality. If symptoms persist or there is continued clinical concern, further asmita luation with MRI or CT may be helpful. Reviewed by: Rajinder Schwartz MD on 03/19/2022 2:51 PM [facility] Approved by: Rajinder Schwartz MD on 03/19/2022 2:51 PM [facility] Station ID: [id number]
== END 2022-03-19 16:05 | disposition home or self-care (01) ==
LOC: ED 13:15
DX: S40.012A Contusion of left shoulder, initial encounter (principal); V49.40XA Driver injured in collision with unspecified motor vehicles in traffic accident, initial encounter; Y93.89 Activity, other specified
CPT/HCPCS: 99282; 99283

== ENCOUNTER 2022-09-24 15:52 | Emergency (ER) | payer MEDICAID ==
[2022-09-24 18:48] LABS: BASOPHILS % (AUTO) 0.2 %; EOSINOPHILS # (AUTO) 0.2 10^3/uL (0.0-0.7); HCT - HEMATOCRIT 43.5 % (37.0-47.0); HGB - HEMOGLOBIN 13.6 g/dL (12.0-16.0); LYMPHOCYTES # (AUTO) 3.3 10^3/uL (1.5-3.5); LYMPHOCYTES % (AUTO) 33.5 %; MEAN CORPUSCULAR HGB CONC 31.3 g/dL (32.0-36.0); MEAN CORPUSCULAR VOLUME 89.5 fL (81.0-99.0); MEAN PLATELET VOLUME 9.7 fL (7.9-10.8); MONOCYTES # (AUTO) 0.6 10^3/uL (0.0-1.0); MONOCYTES % (AUTO) 5.8 %; NEUTROPHILS # (AUTO) 5.7 10^3/uL (1.5-6.6); NEUTROPHILS % (AUTO) 58.1 %; PLT - PLATELET COUNT 360 10^3/uL (130-450); RED BLOOD COUNT 4.86 10^6/uL (4.20-5.40); RED CELL DISTRIBUTION WIDTH 13.5 % (12.0-15.0); WHITE BLOOD COUNT 9.8 x10^3/uL (4.8-10.8)
[2022-09-24 19:01] LABS: ALBUMIN 4.1 g/dL (3.2-5.5); ALBUMIN/GLOBULIN RATIO 1.2 (1.0-2.2); BILIRUBIN,TOTAL 0.4 mg/dL (0.2-1.0); CALCIUM 8.8 mg/dL (8.5-10.3); CREATININE 0.8 mg/dL (0.4-1.0); POTASSIUM 3.7 mmol/L (3.5-5.0); TOTAL PROTEIN 7.5 g/dL (6.7-8.2)
[2022-09-24] MEDS ORDERED: LOPERAMIDE 2 MG CAPSULE PO STA (19:34)
--- NOTE | 2022-09-24 19:39 | ED Physician Documentation ---
History of Present Illness - Stated complaint Stated Complaint: DIARRHEA/STOMACH PX - Chief complaint Chief Complaint: Abd Pain - Additonal information Additional information: 7-year-old female presents emergency department for evaluation of diarrhea. States 5 days ago she had vomiting for 24 hours followed by 2 days of intense diarrhea. This seemed to improve for about 24 hours. She was able to work and clean her house however yesterday she began having brown diarrhea again. She does have some cramping but no focal pain. No fevers. Reports that her granddaughter was sick with similar last week. Denies any recent travel or ant ibiotics. No recent hospitalizations. No pertinent past surgical history Review of Systems Constitutional: denies: Fever Cardiac: reports: Reviewed and negative Respiratory: reports: Reviewed and negative GI: reports: Diarrhea. 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 HEENT: None Psych: Depression Musculoskeletal: None Derm: None - Past Surgical History Past Surgical History: No - Present Medications Home Medications: Ambulatory Orders Medication Instructions Recorded Confirmed LORazepam [Ativan] 1 mg PO Q6HR PRN #14 tablet 08/09/21 - Allergies Allergies/Adverse Reactions: Allergies Allergy/AdvReac Type Severity Reaction Status Date / Time No Known Drug Allergies Allergy Verified 09/24/22 15:56 - Social History Does the pt smoke?: No Smoking Status: Never smoker Does the pt drink ETOH?: No Does the pt have substance abuse?: No - Immunizations Immunizations are current?: Yes - POLST Patient has POLST: No PD ED PE NORMAL - General General: Alert and oriented X 3, No acute distress - HEENT HEENT: Atraumatic, Moist mucous membranes - Neck Neck: Supple, no meningeal sign, No adenopathy - Cardiac Cardiac: RRR, No murmur - Respiratory Respiratory: No respiratory distress, Clear bilaterally - Abdomen Abdomen: Soft, Non tender (No abdominal tenderness elicited with light or deep palpation. No percussion tenderness.). No: Normal bowel sounds (Hyperactive) - Derm Derm: Normal color, Warm and dry, No rash - Neuro Neuro: Alert and oriented X 3 Eye Opening: Spontaneous Motor: Obeys Commands Verbal: Oriented GCS Score: 15 Results - Vitals Vitals: Vital Signs - 24 hr 09/24/22 09/24/22 15:56 18:46 Temperature 36.5 C Heart Rate 76 64 Respiratory 16 18 Rate Blood Pressure 140/88 H 145/76 H O2 Saturation 98 99 Oxygen O2 Source Room air - Labs Labs: Laboratory Tests 09/24/22 09/24/22 18:40 18:40 WBC 9.8 RBC 4.86 Hgb 13.6 Hct 43.5 MCV 89.5 MCH 28.0 MCHC 31.3 L RDW 13.5 Plt Count 360 MPV 9.7 Neut # (Auto) 5.7 Lymph # (Auto) 3.3 [place] # (Auto) 0.6 Eos # (Auto) 0.2 Baso # (Auto) 0.0 Absolute Nucleated RBC 0.00 Nucleated RBC % 0.0 Sodium 138 Potassium 3.7 Chloride 104 Carbon Dioxide 26 Anion Gap 8.0 BUN 14 Creatinine 0.8 Estimated GFR (MDRD) 73 L Glucose 98 Calcium 8.8 Total Bilirubin 0.4 AST 34 ALT 51 Alkaline Phosphatase 54 Total Protein 7.5 Albumin 4.1 Globulin 3.4 Albumin/Globulin Ratio 1.2 Lipase 29 PD Medical Decision Making - ED course Complexity details: reviewed results, re-evaluated patient, considered differential, d/w patient ED course: 61-year-old female who comes to the emergency department for evaluation of diarrhea that began 5 days ago. She did have a brief 24 to 36-hour period without it but it resumed again yesterday. No fevers. Nonbloody output no recent antibiotics. Here in the emergency department she is evaluated. She has unremarkable vital signs for age without tachycardia fever or hypotension. Her abdominal exam was benign with no tenderness elicited. We did obtain a CBC and electrolytes and per my interpretation no acute worrisome abnormalities. I discussed with the patient the likelihood that given similar in her granddaughter last week this is a viral enteritis and she is in agreement. We did attempt to order C. difficile however the patient was unable to produce stool in the ER. I discussed with her conservative management using a single dose of Imodium and clear liquids for [address] imaging today and patient elects to be discharged home after single dose of Imodium. Clinically my suspicion for a bowel obstruction or ileus is rather low. Given the lack of tenderness I have lower suspicion for an occult process such as a bowel obstruction or acute appendicitis. Patient has never had surgery in her abdomen making adhesions rather low. As such she is discharged home in stable condition. I discussed the usual emergent return precautions. Departure - Departure Disposition: 01 Home, Self Care Clinical Impression: Diarrhea Qualifiers: Diarrhea type: unspecified type Qualified Code(s): R19.7 - Diarrhea, unspecified Condition: Stable Record reviewed to determine appropriate education?: Yes Instructions: ED Diarrhea Viral Comments: You came to the emergency department today because for the last several days you have had uncontrolled diarrhea. As we discussed at the bedside it is most likely a viral diarrhea as your granddaughter's been sick with similar. We did obtain a CBC and electrolytes That were essentially normal. You are unable to give us a stool sample today to check for infection. Here in the emergency department we did give you a single dose of Imodium which is very effective at helping manage diarrhea. Over the next 24 hours I would like you to Drink clear liquids such as Pedialyte, half-strength Gatorade or apple juice or clear broth. If your symptoms are improving then you can slowly advance her diet with bananas, rice, applesauce and then toast. As we discussed at the bedside given your benign abdominal exam and you are otherwise well-appearing labs we cannot be certain what the cause of your diarrhea was so if your symptoms are worsening in any way, you have fevers higher than 101, suddenly severe or different abdominal pain do not hesitate to return immediately to the ER.
[2022-09-24 19:52] VITALS: BP 132/81
== END 2022-09-24 19:51 | disposition home or self-care (01) ==
LOC: ED 15:52
DX: R19.7 Diarrhea, unspecified (principal)
CPT/HCPCS: 36415; 80053; 83690; 85025; 99283; A9270

== ENCOUNTER 2022-12-31 15:31 | Emergency (ER) | payer MEDICAID ==
[2022-12-31] MEDS ORDERED: ALPRAZolam 0.25 MG TABLET PO STA (15:44)
--- NOTE | 2022-12-31 15:47 | ED Physician Documentation ---
History of Present Illness - Stated complaint Stated Complaint: SOA/PANIC ATTACK - History obtained from History obtained from: Patient - Additonal information Additional information: Patient comes to the emergency department chief complaint of shortness of breath and feeling like she is having a panic attack. Patient states has been under a lot of stress lately because she had to miss about a month of work, due to a bad bout of rhinovirus. 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 The patient states that they do not listen to her and they skip school for a couple of months and she has had to have CPS involved. She states all of the stresses just getting to her and she began to feel as though she was having a panic attack today. The patient states that her symptoms feel consistent with previous panic attacks and she does not think anything different is going on. No chest pain. No shortness of breath beyond what she normally has with panic attacks. She has not been ill recently and feels like her recovery from the rhinovirus is still coming along. The patient states she is currently on sertraline for her anxiety and depression and has also been on Abilify previously, though that was stopped because the patient stated she did not like the way it made her feel. PD PAST MEDICAL HISTORY - Past Medical History Cardiovascular: None Respiratory: None Neuro: None Endocrine/Autoimmune: None GI: [employer] NEGATIVE: None : None HEENT: None Psych: Depression Musculoskeletal: None Derm: None - Past Surgical History Past Surgical History: No - Present Medications Home Medications: Ambulatory Orders Medication Instructions Recorded Confirmed LORazepam [Ativan] 1 mg PO Q6HR PRN #14 tablet 08/09/21 ALPRAZolam [Xanax] 0.25 mg PO Q6H PRN #20 tablet 12/31/22 Aripiprazole [Abilify] 2 mg PO DAILY 12/31/22 12/31/22 Sertraline HCl 100 mg PO DAILY 12/31/22 12/31/22 - Allergies Allergies/Adverse Reactions: Allergies Allergy/AdvReac Type Severity Reaction Status Date / Time No Known Drug Allergies Allergy Verified 12/31/22 15:45 - Social History Does the pt smoke?: No Smoking Status: Never smoker Does the pt drink ETOH?: No Does the pt have substance abuse?: No - Immunizations Immunizations are current?: Yes - POLST Patient has POLST: No PD ED PE NORMAL - Vitals Vital signs reviewed: Yes - General General: Alert and oriented X 3, No acute distress, Well developed/nourished - HEENT HEENT: Atraumatic, PERRL, EOMI, Moist mucous membranes - Neck Neck: Supple, no meningeal sign - Cardiac Cardiac: RRR, No murmur, Strong equal pulses - Respiratory Respiratory: No respiratory distress, Clear bilaterally - Derm Derm: Normal color, Warm and dry, No rash - Extremities Extremities: No deformity, No edema - Neuro Neuro: Alert and oriented X 3 - Psych Psych: Normal mood, Normal affect Results - Vitals Vitals: Vital Signs - 24 hr 12/31/22 15:39 Temperature 36.6 C Heart Rate 95 Respiratory 18 Rate Blood Pressure 157/94 H O2 Saturation 95 Oxygen O2 Source Room air - EKG (time done) 1554 EKG releavant findings:: EKG personally interpreted by author of this note. Relevant findings are: Rate: Rate (enter#) (72) Rhythm: NSR [place]: Normal Intervals: Normal AR QRS: Normal Ischemia: Normal ST segments Compare to prior EKG: Old EKG unavailable Computer interpretation: Agree with computer PD Medical Decision Making - ED course Complexity details: reviewed results, re-evaluated patient, considered differential, d/w patient ED course: The patient was treated symptomatically in the ED with Xanax and was worked up with EKG. The patient's EKG was unremarkable and she is feeling better after Xanax. I discussed with her that she should continue her daily sertraline and that I will prescribe some Xanax for rescue, should she have a panic attack. However, we have discussed that if she is finding she has to use her rescue Xanax every day, then she is going to need to talk to her primary doctor or psychiatrist about adjusting her baseline anxiolysis regimen. The patient is agreeable to this plan. We have discussed the usual indications for return. Departure - Departure Disposition: 01 Home, Self Care Clinical Impression: Anxiety attack Condition: Stable Instructions: ED Panic Attack Prescriptions: ALPRAZolam [Xanax] 0.25 mg PO Q6H PRN #20 tablet PRN Reason: Anxiety Comments: Your EKG looks great today. Since your symptoms are consistent with previous panic attacks, most likely that is what is going on today, as well. You have been given a dose of Xanax here in the emergency department. You should continue to take your sertraline as prescribed on a daily basis, and if you need rescue, you may use the Xanax which has been provided by prescription today. The prescription for this has been electronically transmitted to the [facility] in [place], your pharmacy of choice on record. You should schedule a follow-up appointment with your psychiatrist to discuss your medication needs for your anxiety. If you find you are needing to use your rescue medication every single day, then you will need to talk to your psychiatrist about getting better control of your anxiety at baseline. Forms: Activity restrictions
--- OUTSIDE RECORDS SUMMARY | 2022-12-31 15:57 | EXTERNAL MEDICAL SUMMARY RPT | Continuity of Care Document ---
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 Name Role Phone Nguyen Jordan Unavailable Unavailable Allergies and Intolerances date description facility type (no date) No Known Drug Allergies [facility] ( unknown) Medications date description facility 2022-12-17 00:00 Benzonatate [facility] 2022-12-17 00:00 Prednisone [facility] Problems date description facility 2022-12-17 00:00 Rhinovirus infection [facility] 2022-12-17 00:00 Upper respiratory infection [facility] 2022-12-28 10:58 Cough, unspecified [facility] Procedures date description facility 2022-12-16 00:00 X-ray of chest, two views [facility] Results/Labs test date author facility value unit interpretation Result panel 1 (unknown) (no date) (unknown) [facility] (no value) (units unknown) (unknown) Result panel 2 (unknown) (no date) (unknown) [facility] (no value) (units unknown) (unknown) Result panel 3 (unknown) (no date) (unknown) [facility] (no value) (units unknown) (unknown) Result panel 4 (unknown) (no date) (unknown) [facility] (no value) (units unknown) (unknown) Result panel 5 (unknown) (no date) (unknown) [facility] (no value) (units unknown) (unknown) Result panel 6 (unknown) (no date) (unknown) [facility] (no value) (units unknown) (unknown) Result panel 7 (unknown) (no date) (unknown) [facility] (no value) (units unknown) (unknown) Result panel 8 (unknown) (no date) (unknown) [facility] (no value) (units unknown) (unknown) Result panel 9 (unknown) (no date) (unknown) [facility] (no value) (units unknown) (unknown) Result panel 10 (unknown) (no date) (unknown) [facility] (no value) (units unknown) (unknown) Result panel 11 (unknown) (no date) (unknown) [facility] (no value) (units unknown) (unknown) Result panel 12 (unknown) (no date) (unknown) [facility] (no value) (units unknown) (unknown) Result panel 13 (unknown) (no date) (unknown) [facility] (no value) (units unknown) (unknown) Result panel 14 (unknown) (no date) (unknown) [facility] (no value) (units unknown) (unknown) Result panel 15 (unknown) (no date) (unknown) [facility] (no value) (units unknown) (unknown) Result panel 16 (unknown) (no date) (unknown) [facility] (no value) (units unknown) (unknown) Result panel 17 (unknown) (no date) (unknown) [facility] (no value) (units unknown) (unknown) Result panel 18 (unknown) (no date) (unknown) [facility] (no value) (units unknown) (unknown) Result panel 19 (unknown) (no date) (unknown) (unknown) (no value) (units unknown) (unknown) (unknown) (no date) (unknown) (unknown) [id number] (units unknown) (unknown) (unknown) (no date) (unknown) (unknown) 12/16/22 (units unknown) (unknown) (unknown) (no date) (unknown) (unknown) [address] [place] [address] (un its unknown) (unknown) (unknown) (no date) (unknown) (unknown) Accession Numb er: [id number] (units unknown) (unknown) (unknown) (no date) (unknown) (unknown) Age/Sex: 62 / F Date of Service: (units unknown) (unknown) (unknown) (no date) (unknown) (unknown) STEVE Pappas [id number] (units unknown) (unknown) (unknown) (no date) (unknown) (unknown) Approved by: Christina Navarro M.D. on 12/16/2022 at 20:36 (units unknown) (unknown) (unknown) (no date) (unknown) (unknown) Bones and ches t wall: No suspicious bony abnormalities. Soft tissues appear (units unknown) (unknown) (unknown) (no date) (unknown) (unknown) COMPARISON: None. (u nits unknown) (unknown) (unknown) (no date) (unknown) (unknown) : 2 Acct:[id number] (units unknown) (unknown) (unknown) (no date) (unknown) (unknown) Dictated by: Christina Navarro M.D. on 12/16/2022 at 20:35 (units unknown) (unknown) (unknown) (no date) (unknown) (unknown) FINDINGS: (units unknown) (unknown) (unknown) (no date) (unknown) (unknown) IMPRESSION: No acute cardiopulmonary pathology. (units unknown) (unknown) (unknown) (no date) (unknown) (unknown) INDICATIONS: U RI for 2 weeks (units unknown) (unknown) (unknown) (no date) (unknown) (unknown) [facility] (uni ts unknown) (unknown) (unknown) (no date) (unknown) (unknown) Loc: ED (units unknown) (unknown) (unknown) (no date) (unknown) (unknown) Lungs and pleu ra: Lungs are clear. No pleural effusions or pneumothorax. (units unknown) (unknown) (unknown) (no date) (unknown) (unknown) Mediastinum: Mediastinal contours are normal. Heart size is normal. (units unknown) (unknown) (unknown) (no date) (unknown) (unknown) Ordering Provi dominique: Anneliese Moore MD (units unknown) (unknown) (unknown) (no date) (unknown) (unknown) PROCEDURE: XR CHEST 2V (units unknown) (unknown) (unknown) (no date) (unknown) (unknown) Patient: Dimitri Tejeda MR#: [id number] (units unknown) (unknown) (unknown) (no date) (unknown) (unknown) Procedure: XR chest 2V (units unknown) (unknown) (unknown) (no date) (unknown) (unknown) Signed (units unknown) (unknown) (unknown) (no date) (unknown) (unknown) Surgical seals es and devices: None. (units unknown) (unknown) (unknown) (no date) (unknown) (unknown) TECHNIQUE: 2 v iews of the chest were acquired. (units unknown) (unknown) (unknown) (no date) (unknown) (unknown) XRay Report (units unknown) (unknown) (unknown) (no date) (unknown) (unknown) unremarkable. (units unknown) (unknown) Result panel 20 (unknown) (no date) (unknown) (unknown) Detected (units unknown) (unknown) (unknown) (no date) (unknown) (unknown) Not Detected (units unknown) (unknown) (unknown) (no date) (unknown) (unknown) Not Detected (units unknown) (unknown) Result panel 21 (unknown) (no date) (unknown) (unknown) (no value) (units unknown) (unknown) (unknown) (no date) (unknown) (unknown) [id number] (units unknown) (unknown) (unknown) (no date) (unknown) (unknown) 12/16/22 20:21 (unit s unknown) (unknown) (unknown) (no date) (unknown) (unknown) 12/16/22 20:22 (unit s unknown) (unknown) (unknown) (no date) (unknown) (unknown) 12/16/22 Range/Units (units unknown) (unknown) (unknown) (no date) (unknown) (unknown) 12/16/22 (units unknown) (unknown) (unknown) (no date) (unknown) (unknown) 20:15 12/16/22 (unit s unknown) (unknown) (unknown) (no date) (unknown) (unknown) 20:22 (units unknown) (unknown) (unknown) (no date) (unknown) (unknown) 23:45 (units unknown) (unknown) (unknown) (no date) (unknown) (unknown) Adenovirus (PC R) Not detected (Not Detect) (units unknown) (unknown) (unknown) (no date) (unknown) (unknown) Age/Sex: 62 / F (uni ts unknown) (unknown) (unknown) (no date) (unknown) (unknown) Allergies (units unknown) (unknown) (unknown) (no date) (unknown) (unknown) Allergy/AdvRea c Type Severity Reaction Status Date / Time (units unknown) (unknown) (unknown) (no date) (unknown) (unknown) B. pertussis D NA (PCR) Not detected (Not Detecte) (units unknown) (unknown) (unknown) (no date) (unknown) (unknown) B.parapertussi s DNA PCR Not detected (Not Detecte) (units unknown) (unknown) (unknown) (no date) (unknown) (unknown) Blood Pressure 140/85 12/16/22 20:15 (units unknown) (unknown) (unknown) (no date) (unknown) (unknown) Blood Pressure 140/85 138/86 (units unknown) (unknown) (unknown) (no date) (unknown) (unknown) Chief complain t: Upper Respiratory Symptoms (units unknown) (unknown) (unknown) (no date) (unknown) (unknown) Chlamy pneumon iae PCR Not detected (Not Detect) (units unknown) (unknown) (unknown) (no date) (unknown) (unknown) Coronavirus 22 9E (PCR) Not detected (Not Detect) (units unknown) (unknown) (unknown) (no date) (unknown) (unknown) Coronavirus HK U1 (PCR) Not detected (Not Detect) (units unknown) (unknown) (unknown) (no date) (unknown) (unknown) Coronavirus NL 63 (PCR) Not detected (Not Detect) (units unknown) (unknown) (unknown) (no date) (unknown) (unknown) Coronavirus OC 43 (PCR) Not detected (Not Detect) (units unknown) (unknown) (unknown) (no date) (unknown) (unknown) Course (units unknown) (unknown) (unknown) (no date) (unknown) (unknown) : 2 Acct:[id number] (units unknown) (unknown) (unknown) (no date) (unknown) (unknown) Date of Servic e: 12/16/22 (units unknown) (unknown) (unknown) (no date) (unknown) (unknown) Departure (units unknown) (unknown) (unknown) (no date) (unknown) (unknown) Discharge Plan (unit s unknown) (unknown) (unknown) (no date) (unknown) (unknown) ED Orders (units unknown) (unknown) (unknown) (no date) (unknown) (unknown) ER Physician: Anneliese Moore MD (units unknown) (unknown) (unknown) (no date) (unknown) (unknown) Emergency Report (un its unknown) (unknown) (unknown) (no date) (unknown) (unknown) Entero/Rhino ( PCR) Detected H (Not Detect) (units unknown) (unknown) (unknown) (no date) (unknown) (unknown) Exam (units unknown) (unknown) (unknown) (no date) (unknown) (unknown) General (units unknown) (unknown) (unknown) (no date) (unknown) (unknown) HPI - General Adult (units unknown) (unknown) (unknown) (no date) (unknown) (unknown) Human Metapneu movir PCR Not detected (Not Detect) (units unknown) (unknown) (unknown) (no date) (unknown) (unknown) Influenza Type A (PCR) Not detected (Not Detect) (units unknown) (unknown) (unknown) (no date) (unknown) (unknown) Influenza Type B (PCR) Not detected (Not Detect) (units unknown) (unknown) (unknown) (no date) (unknown) (unknown) Initial Vital Signs (units unknown) (unknown) (unknown) (no date) (unknown) (unknown) Initial Vital Signs: (units unknown) (unknown) (unknown) (no date) (unknown) (unknown) [facility] [address] [place] [id number] (units unknown) (unknown) (unknown) (no date) (unknown) (unknown) Lab Data (units unknown) (unknown) (unknown) (no date) (unknown) (unknown) Lab Results (units unknown) (unknown) (unknown) (no date) (unknown) (unknown) Labs: (units unknown) (unknown) (unknown) (no date) (unknown) (unknown) M. pneumoniae (PCR) Not detected (Not Detect) (units unknown) (unknown) (unknown) (no date) (unknown) (unknown) Medical Decisi on Making (units unknown) (unknown) (unknown) (no date) (unknown) (unknown) Mode of arriva l: Ambulatory (units unknown) (unknown) (unknown) (no date) (unknown) (unknown) No Known Drug Allergies Allergy Verified 12/16/22 20:15 (units unknown) (unknown) (unknown) (no date) (unknown) (unknown) Ordered: (units unknown) (unknown) (unknown) (no date) (unknown) (unknown) Orders (units unknown) (unknown) (unknown) (no date) (unknown) (unknown) Oxygen Deliver y Method Room Air 12/16/22 20:15 (units unknown) (unknown) (unknown) (no date) (unknown) (unknown) Oxygen Deliver y Method Room Air Room Air (units unknown) (unknown) (unknown) (no date) (unknown) (unknown) Parainfluenza 1 (PCR) Not detected (Not Detect) (units unknown) (unknown) (unknown) (no date) (unknown) (unknown) Parainfluenza 2 (PCR) Not detected (Not Detect) (units unknown) (unknown) (unknown) (no date) (unknown) (unknown) Parainfluenza 3 (PCR) Not detected (Not Detect) (units unknown) (unknown) (unknown) (no date) (unknown) (unknown) Parainfluenza 4 (PCR) Not detected (Not Detect) (units unknown) (unknown) (unknown) (no date) (unknown) (unknown) Patient History (uni ts unknown) (unknown) (unknown) (no date) (unknown) (unknown) Patient: Dimitri Tejeda MR#: [id number] (units unknown) (unknown) (unknown) (no date) (unknown) (unknown) Pulse Oximetry 98 12/16/22 20:15 (units unknown) (unknown) (unknown) (no date) (unknown) (unknown) Pulse Oximetry 98 98 (units unknown) (unknown) (unknown) (no date) (unknown) (unknown) Pulse Rate 74 12/16/22 20:15 (units unknown) (unknown) (unknown) (no date) (unknown) (unknown) Pulse Rate 74 68 (un its unknown) (unknown) (unknown) (no date) (unknown) (unknown) RSV (PCR) Not detected (Not Detect) (units unknown) (unknown) (unknown) (no date) (unknown) (unknown) Referrals: (units unknown) (unknown) (unknown) (no date) (unknown) (unknown) Related Data (units unknown) (unknown) (unknown) (no date) (unknown) (unknown) Respiratory Pa deborah (Film Array) Stat (units unknown) (unknown) (unknown) (no date) (unknown) (unknown) Respiratory Ra te 16 12/16/22 20:15 (units unknown) (unknown) (unknown) (no date) (unknown) (unknown) Respiratory Ra te 16 18 (units unknown) (unknown) (unknown) (no date) (unknown) (unknown) SARS-CoV-2 (PC R) Not detected (Not Detecte) (units unknown) (unknown) (unknown) (no date) (unknown) (unknown) Signed By: (units unknown) (unknown) (unknown) (no date) (unknown) (unknown) Smoking Status : Never smoker (units unknown) (unknown) (unknown) (no date) (unknown) (unknown) Social History (unit s unknown) (unknown) (unknown) (no date) (unknown) (unknown) Source: patient (uni ts unknown) (unknown) (unknown) (no date) (unknown) (unknown) Stated complai nt: Sick for two weeks, chest cold (units unknown) (unknown) (unknown) (no date) (unknown) (unknown) Substance Use Type: does not use (units unknown) (unknown) (unknown) (no date) (unknown) (unknown) Temperature 97 .4 F L 12/16/22 20:15 (units unknown) (unknown) (unknown) (no date) (unknown) (unknown) Temperature 97 .4 F L 97.9 F (units unknown) (unknown) (unknown) (no date) (unknown) (unknown) Time Seen by Provider: 12/16/22 23:51 (units unknown) (unknown) (unknown) (no date) (unknown) (unknown) Vital Signs - 8 hr ( units unknown) (unknown) (unknown) (no date) (unknown) (unknown) Vital Signs (units unknown) (unknown) (unknown) (no date) (unknown) (unknown) Vital signs: (units unknown) (unknown) (unknown) (no date) (unknown) (unknown) XR chest 2V Stat (un its unknown) (unknown) (unknown) (no date) (unknown) (unknown) Nguyen Jordan PA-C [Primary Care Provider] (units unknown) (unknown) Result panel 22 (unknown) (no date) (unknown) (unknown) (no value) (units unknown) (unknown) (unknown) (no date) (unknown) (unknown) [id number] (units unknown) (unknown) (unknown) (no date) (unknown) (unknown) 12/16/22 20:21 (unit s unknown) (unknown) (unknown) (no date) (unknown) (unknown) 12/16/22 20:22 (unit s unknown) (unknown) (unknown) (no date) (unknown) (unknown) 12/16/22 Range/Units (units unknown) (unknown) (unknown) (no date) (unknown) (unknown) 12/16/22 (units unknown) (unknown) (unknown) (no date) (unknown) (unknown) 20:15 12/16/22 (unit s unknown) (unknown) (unknown) (no date) (unknown) (unknown) 20:22 (units unknown) (unknown) (unknown) (no date) (unknown) (unknown) 23:45 (units unknown) (unknown) (unknown) (no date) (unknown) (unknown) 62-year-old wo man with history of depression presents with upper respiratory (units unknown) (unknown) (unknown) (no date) (unknown) (unknown) Abdomen: Soft, nontender, good bowel tones, no flank pain (units unknown) (unknown) (unknown) (no date) (unknown) (unknown) Additional Information: (units unknown) (unknown) (unknown) (no date) (unknown) (unknown) Adenovirus (PC R) Not detected (Not Detect) (units unknown) (unknown) (unknown) (no date) (unknown) (unknown) Age/Sex: 62 / F (uni ts unknown) (unknown) (unknown) (no date) (unknown) (unknown) Allergies (units unknown) (unknown) (unknown) (no date) (unknown) (unknown) Allergy/AdvRea c Type Severity Reaction Status Date / Time (units unknown) (unknown) (unknown) (no date) (unknown) (unknown) Appropriate treatment for patients with URI: (units unknown) (unknown) (unknown) (no date) (unknown) (unknown) B. pertussis D NA (PCR) Not detected (Not Detecte) (units unknown) (unknown) (unknown) (no date) (unknown) (unknown) B.parapertussi s DNA PCR Not detected (Not Detecte) (units unknown) (unknown) (unknown) (no date) (unknown) (unknown) Blood Pressure 140/85 12/16/22 20:15 (units unknown) (unknown) (unknown) (no date) (unknown) (unknown) Blood Pressure 140/85 138/86 (units unknown) (unknown) (unknown) (no date) (unknown) (unknown) CC: Cough for 2 and half weeks. This is an acute problem uncertain prognosis (units unknown) (unknown) (unknown) (no date) (unknown) (unknown) COPD may certa inly be part of her issues. She was initially seen at [facility] (units unknown) (unknown) (unknown) (no date) (unknown) (unknown) COPD with reac tive airway disease (units unknown) (unknown) (unknown) (no date) (unknown) (unknown) Cardiac: Regul ar rate and rhythm no murmurs no bruits (units unknown) (unknown) (unknown) (no date) (unknown) (unknown) Chief complain t: Upper Respiratory Symptoms (units unknown) (unknown) (unknown) (no date) (unknown) (unknown) Chlamy pneumon iae PCR Not detected (Not Detect) (units unknown) (unknown) (unknown) (no date) (unknown) (unknown) Complicating co-morbidities: History of tobacco use. Likely moderate degree of (units unknown) (unknown) (unknown) (no date) (unknown) (unknown) Coronavirus 22 9E (PCR) Not detected (Not Detect) (units unknown) (unknown) (unknown) (no date) (unknown) (unknown) Coronavirus HK U1 (PCR) Not detected (Not Detect) (units unknown) (unknown) (unknown) (no date) (unknown) (unknown) Coronavirus NL 63 (PCR) Not detected (Not Detect) (units unknown) (unknown) (unknown) (no date) (unknown) (unknown) Coronavirus OC 43 (PCR) Not detected (Not Detect) (units unknown) (unknown) (unknown) (no date) (unknown) (unknown) Course (units unknown) (unknown) (unknown) (no date) (unknown) (unknown) : 2 Acct:[id number] (units unknown) (unknown) (unknown) (no date) (unknown) (unknown) Data collected from: patient, (units unknown) (unknown) (unknown) (no date) (unknown) (unknown) Date of Servic e: 12/16/22 (units unknown) (unknown) (unknown) (no date) (unknown) (unknown) Departure (units unknown) (unknown) (unknown) (no date) (unknown) (unknown) Differential considered: Upper respiratory infection, bacterial pneumonia, (units unknown) (unknown) (unknown) (no date) (unknown) (unknown) Discharge Plan (unit s unknown) (unknown) (unknown) (no date) (unknown) (unknown) Discussion: Gopi johnson is feeling much better after initial treatments. There is (units unknown) (unknown) (unknown) (no date) (unknown) (unknown) ED Orders (units unknown) (unknown) (unknown) (no date) (unknown) (unknown) ER Physician: Anneliese Moore MD (units unknown) (unknown) (unknown) (no date) (unknown) (unknown) Emergency Report (un its unknown) (unknown) (unknown) (no date) (unknown) (unknown) Entero/Rhino ( PCR) Detected H (Not Detect) (units unknown) (unknown) (unknown) (no date) (unknown) (unknown) Exam documente d above, pertinent findings include: (units unknown) (unknown) (unknown) (no date) (unknown) (unknown) Exam (units unknown) (unknown) (unknown) (no date) (unknown) (unknown) Extremities: N o trauma, well perfused (units unknown) (unknown) (unknown) (no date) (unknown) (unknown) Fatigue and mi nor scattered wheezing with persistent dry cough (units unknown) (unknown) (unknown) (no date) (unknown) (unknown) General (units unknown) (unknown) (unknown) (no date) (unknown) (unknown) General: Fatig ued appearing but in no acute distress. Able to give a complete (units unknown) (unknown) (unknown) (no date) (unknown) (unknown) HEENT: Moist m ucous membranes, normal sclera with reactive pupils, (units unknown) (unknown) (unknown) (no date) (unknown) (unknown) HPI - General Adult (units unknown) (unknown) (unknown) (no date) (unknown) (unknown) HPI narrative: (unit s unknown) (unknown) (unknown) (no date) (unknown) (unknown) History of Pre sent Illness (units unknown) (unknown) (unknown) (no date) (unknown) (unknown) Human Metapneu movir PCR Not detected (Not Detect) (units unknown) (unknown) (unknown) (no date) (unknown) (unknown) Influenza Type A (PCR) Not detected (Not Detect) (units unknown) (unknown) (unknown) (no date) (unknown) (unknown) Influenza Type B (PCR) Not detected (Not Detect) (units unknown) (unknown) (unknown) (no date) (unknown) (unknown) Initial Vital Signs (units unknown) (unknown) (unknown) (no date) (unknown) (unknown) Initial Vital Signs: (units unknown) (unknown) (unknown) (no date) (unknown) (unknown) [facility] and was given 3 days of prednisone at the onset of her symptoms (units unknown) (unknown) (unknown) (no date) (unknown) (unknown) [place] [address] (units unknown) (unknown) (unknown) (no date) (unknown) (unknown) Lab Data (units unknown) (unknown) (unknown) (no date) (unknown) (unknown) Lab Results (units unknown) (unknown) (unknown) (no date) (unknown) (unknown) Lab Test resul ts independently reviewed as above. Pertinent findings: PCR (units unknown) (unknown) (unknown) (no date) (unknown) (unknown) Labs: (units unknown) (unknown) (unknown) (no date) (unknown) (unknown) M. pneumoniae (PCR) Not detected (Not Detect) (units unknown) (unknown) (unknown) (no date) (unknown) (unknown) MDM Narrative (units unknown) (unknown) (unknown) (no date) (unknown) (unknown) Medical Decisi on Making (units unknown) (unknown) (unknown) (no date) (unknown) (unknown) Medical decisi on making narrative: (units unknown) (unknown) (unknown) (no date) (unknown) (unknown) Mode of arriva l: Ambulatory (units unknown) (unknown) (unknown) (no date) (unknown) (unknown) Narrative: (units unknown) (unknown) (unknown) (no date) (unknown) (unknown) Neck: No JVD, supple, no cervical adenopathy (units unknown) (unknown) (unknown) (no date) (unknown) (unknown) Neurologic: Gr ossly neurologically intact with no obvious asymmetries or (units unknown) (unknown) (unknown) (no date) (unknown) (unknown) No Known Drug Allergies Allergy Verified 12/16/22 20:15 (units unknown) (unknown) (unknown) (no date) (unknown) (unknown) Ordered: (units unknown) (unknown) (unknown) (no date) (unknown) (unknown) Orders (units unknown) (unknown) (unknown) (no date) (unknown) (unknown) Oxygen Deliver y Method Room Air 12/16/22 20:15 (units unknown) (unknown) (unknown) (no date) (unknown) (unknown) Oxygen Deliver y Method Room Air Room Air (units unknown) (unknown) (unknown) (no date) (unknown) (unknown) Parainfluenza 1 (PCR) Not detected (Not Detect) (units unknown) (unknown) (unknown) (no date) (unknown) (unknown) Parainfluenza 2 (PCR) Not detected (Not Detect) (units unknown) (unknown) (unknown) (no date) (unknown) (unknown) Parainfluenza 3 (PCR) Not detected (Not Detect) (units unknown) (unknown) (unknown) (no date) (unknown) (unknown) Parainfluenza 4 (PCR) Not detected (Not Detect) (units unknown) (unknown) (unknown) (no date) (unknown) (unknown) Patient Disposition: Home (units unknown) (unknown) (unknown) (no date) (unknown) (unknown) Patient History (uni ts unknown) (unknown) (unknown) (no date) (unknown) (unknown) Patient: Dimitri Tejeda MR#: [id number] (units unknown) (unknown) (unknown) (no date) (unknown) (unknown) Pertinent posi tive and negative findings as per HPI (units unknown) (unknown) (unknown) (no date) (unknown) (unknown) Psych: Cooper[place] tive, appropriate insight and affect (units unknown) (unknown) (unknown) (no date) (unknown) (unknown) Pulse Oximetry 98 12/16/22 20:15 (units unknown) (unknown) (unknown) (no date) (unknown) (unknown) Pulse Oximetry 98 98 (units unknown) (unknown) (unknown) (no date) (unknown) (unknown) Pulse Rate 74 12/16/22 20:15 (units unknown) (unknown) (unknown) (no date) (unknown) (unknown) Pulse Rate 74 68 (un its unknown) (unknown) (unknown) (no date) (unknown) (unknown) RSV (PCR) Not detected (Not Detect) (units unknown) (unknown) (unknown) (no date) (unknown) (unknown) Referrals: (units unknown) (unknown) (unknown) (no date) (unknown) (unknown) Related Data (units unknown) (unknown) (unknown) (no date) (unknown) (unknown) Respiratory Pa deborah (Film Array) Stat (units unknown) (unknown) (unknown) (no date) (unknown) (unknown) Respiratory Ra te 16 12/16/22 20:15 (units unknown) (unknown) (unknown) (no date) (unknown) (unknown) Respiratory Ra te 16 18 (units unknown) (unknown) (unknown) (no date) (unknown) (unknown) Respiratory: L ungs with minor scattered wheezing in all lung almanzar. No (units unknown) (unknown) (unknown) (no date) (unknown) (unknown) Review of Systems (u nits unknown) (unknown) (unknown) (no date) (unknown) (unknown) SARS-CoV-2 (PC R) Not detected (Not Detecte) (units unknown) (unknown) (unknown) (no date) (unknown) (unknown) Signed By: (units unknown) (unknown) (unknown) (no date) (unknown) (unknown) Skin: Warm and dry, no rashes (units unknown) (unknown) (unknown) (no date) (unknown) (unknown) Smoking Status : Never smoker (units unknown) (unknown) (unknown) (no date) (unknown) (unknown) Social History (unit s unknown) (unknown) (unknown) (no date) (unknown) (unknown) Source: patient (uni ts unknown) (unknown) (unknown) (no date) (unknown) (unknown) Stand Alone Fo guru: Patient Portal/API (units unknown) (unknown) (unknown) (no date) (unknown) (unknown) Stated complai nt: Sick for two weeks, chest cold (units unknown) (unknown) (unknown) (no date) (unknown) (unknown) Substance Use Type: does not use (units unknown) (unknown) (unknown) (no date) (unknown) (unknown) Temperature 97 .4 F L 12/16/22 20:15 (units unknown) (unknown) (unknown) (no date) (unknown) (unknown) Temperature 97 .4 F L 97.9 F (units unknown) (unknown) (unknown) (no date) (unknown) (unknown) Tessalon Perle (unit s unknown) (unknown) (unknown) (no date) (unknown) (unknown) Time Seen by Provider: 12/16/22 23:51 (units unknown) (unknown) (unknown) (no date) (unknown) (unknown) Treatments: Albuterol MDI 4 puffs with spacer, oral prednisone 60 mg and (units unknown) (unknown) (unknown) (no date) (unknown) (unknown) Vital Signs - 8 hr ( units unknown) (unknown) (unknown) (no date) (unknown) (unknown) Vital Signs (units unknown) (unknown) (unknown) (no date) (unknown) (unknown) Vital signs: (units unknown) (unknown) (unknown) (no date) (unknown) (unknown) X patient was diagnosed with upper respiratory infection and was not prescribed (units unknown) (unknown) (unknown) (no date) (unknown) (unknown) XR chest 2V Stat (un its unknown) (unknown) (unknown) (no date) (unknown) (unknown) Nguyen Jordan PA-C [Primary Care Provider] (units unknown) (unknown) (unknown) (no date) (unknown) (unknown) a mild compone nt of reactive airway disease that is contributing to the (units unknown) (unknown) (unknown) (no date) (unknown) (unknown) abnormalities (units unknown) (unknown) (unknown) (no date) (unknown) (unknown) and coherent history. Well-nourished well-developed (units unknown) (unknown) (unknown) (no date) (unknown) (unknown) and found that it was quite helpful. At this point she is continuing to have (units unknown) (unknown) (unknown) (no date) (unknown) (unknown) believe this i s still all rhino virus that is continuing to run its course with (units unknown) (unknown) (unknown) (no date) (unknown) (unknown) but not overt diarrhea. There is no blood in her stool. (units unknown) (unknown) (unknown) (no date) (unknown) (unknown) cardiomyopathy (unit s unknown) (unknown) (unknown) (no date) (unknown) (unknown) coughing, head fullness, dyspnea with exertion no orthopnea no chest pain or (units unknown) (unknown) (unknown) (no date) (unknown) (unknown) dispensed an antibiotic. (satisfies MIPS performance) (units unknown) (unknown) (unknown) (no date) (unknown) (unknown) end, we will recommend 5 days of steroids, will send her home with a albuterol (units unknown) (unknown) (unknown) (no date) (unknown) (unknown) given, questio ns are answered and she is safe for discharge home (units unknown) (unknown) (unknown) (no date) (unknown) (unknown) meter dose inh aler and Tessalon Perles to help with the cough. Reassurance is (units unknown) (unknown) (unknown) (no date) (unknown) (unknown) no evidence of bacterial pneumonia or other secondary bacterial infection. I (units unknown) (unknown) (unknown) (no date) (unknown) (unknown) of smoking pineda s not currently smoke has not been diagnosed with asthma but mild (units unknown) (unknown) (unknown) (no date) (unknown) (unknown) palpitations. She has not had any fevers recently. She noted some loose stool (units unknown) (unknown) (unknown) (no date) (unknown) (unknown) persistent dry irritating cough that is keeping her awake at night. To that (units unknown) (unknown) (unknown) (no date) (unknown) (unknown) rhonchi. Full and symmetrical air movement (units unknown) (unknown) (unknown) (no date) (unknown) (unknown) sinusitis, BANK REPRESENTATIVE D exacerbation, acute coronary syndrome, congestive heart failure, (units unknown) (unknown) (unknown) (no date) (unknown) (unknown) symptoms for t he last 2-1/2 weeks. She notes that she did have a long history (units unknown) (unknown) (unknown) (no date) (unknown) (unknown) testing demonstrates rhino virus. (units unknown) (unknown) Result panel 23 (unknown) (no date) (unknown) (unknown) (no value) (units unknown) (unknown) (unknown) (no date) (unknown) (unknown) <Electronicall y signed by Anneliese Moore MD> (units unknown) (unknown) (unknown) (no date) (unknown) (unknown) [id number] (units unknown) (unknown) (unknown) (no date) (unknown) (unknown) 12/16/22 20:21 (unit s unknown) (unknown) (unknown) (no date) (unknown) (unknown) 12/16/22 20:22 (unit s unknown) (unknown) (unknown) (no date) (unknown) (unknown) 12/16/22 Range/Units (units unknown) (unknown) (unknown) (no date) (unknown) (unknown) 12/16/22 (units unknown) (unknown) (unknown) (no date) (unknown) (unknown) 12/17/22 0056 (units unknown) (unknown) (unknown) (no date) (unknown) (unknown) 100 mg PO TID PRN (Reason: cough) Qty: 20 0RF (units unknown) (unknown) (unknown) (no date) (unknown) (unknown) 20 mg PO DAILY Qty: 5 0RF (units unknown) (unknown) (unknown) (no date) (unknown) (unknown) 20:15 12/16/22 (unit s unknown) (unknown) (unknown) (no date) (unknown) (unknown) 20:22 (units unknown) (unknown) (unknown) (no date) (unknown) (unknown) 23:45 (units unknown) (unknown) (unknown) (no date) (unknown) (unknown) 62-year-old wo man with history of depression presents with upper respiratory (units unknown) (unknown) (unknown) (no date) (unknown) (unknown) Abdomen: Soft, nontender, good bowel tones, no flank pain (units unknown) (unknown) (unknown) (no date) (unknown) (unknown) Activity Restrictions/Additi onal Instructions: (units unknown) (unknown) (unknown) (no date) (unknown) (unknown) Additional Information: (units unknown) (unknown) (unknown) (no date) (unknown) (unknown) Adenovirus (PC R) Not detected (Not Detect) (units unknown) (unknown) (unknown) (no date) (unknown) (unknown) Age/Sex: 62 / F (uni ts unknown) (unknown) (unknown) (no date) (unknown) (unknown) Allergies (units unknown) (unknown) (unknown) (no date) (unknown) (unknown) Allergy/AdvRea c Type Severity Reaction Status Date / Time (units unknown) (unknown) (unknown) (no date) (unknown) (unknown) Appropriate treatment for patients with URI: (units unknown) (unknown) (unknown) (no date) (unknown) (unknown) B. pertussis D NA (PCR) Not detected (Not Detecte) (units unknown) (unknown) (unknown) (no date) (unknown) (unknown) B.parapertussi s DNA PCR Not detected (Not Detecte) (units unknown) (unknown) (unknown) (no date) (unknown) (unknown) Blood Pressure 140/85 12/16/22 20:15 (units unknown) (unknown) (unknown) (no date) (unknown) (unknown) Blood Pressure 140/85 138/86 (units unknown) (unknown) (unknown) (no date) (unknown) (unknown) CC: Cough for 2 and half weeks. This is an acute problem uncertain prognosis (units unknown) (unknown) (unknown) (no date) (unknown) (unknown) COPD may certa inly be part of her issues. She was initially seen at [facility] (units unknown) (unknown) (unknown) (no date) (unknown) (unknown) COPD with reac tive airway disease (units unknown) (unknown) (unknown) (no date) (unknown) (unknown) Cardiac: Regul ar rate and rhythm no murmurs no bruits (units unknown) (unknown) (unknown) (no date) (unknown) (unknown) Chief complain t: Upper Respiratory Symptoms (units unknown) (unknown) (unknown) (no date) (unknown) (unknown) Chlamy pneumon iae PCR Not detected (Not Detect) (units unknown) (unknown) (unknown) (no date) (unknown) (unknown) Clinical Impression: (units unknown) (unknown) (unknown) (no date) (unknown) (unknown) Complicating co-morbidities: History of tobacco use. Likely moderate degree of (units unknown) (unknown) (unknown) (no date) (unknown) (unknown) Coronavirus 22 9E (PCR) Not detected (Not Detect) (units unknown) (unknown) (unknown) (no date) (unknown) (unknown) Coronavirus HK U1 (PCR) Not detected (Not Detect) (units unknown) (unknown) (unknown) (no date) (unknown) (unknown) Coronavirus NL 63 (PCR) Not detected (Not Detect) (units unknown) (unknown) (unknown) (no date) (unknown) (unknown) Coronavirus OC 43 (PCR) Not detected (Not Detect) (units unknown) (unknown) (unknown) (no date) (unknown) (unknown) Course (units unknown) (unknown) (unknown) (no date) (unknown) (unknown) : 2 Acct:[id number] (units unknown) (unknown) (unknown) (no date) (unknown) (unknown) Data collected from: patient, (units unknown) (unknown) (unknown) (no date) (unknown) (unknown) Date of Servic e: 12/16/22 (units unknown) (unknown) (unknown) (no date) (unknown) (unknown) Departure (units unknown) (unknown) (unknown) (no date) (unknown) (unknown) Differential considered: Upper respiratory infection, bacterial pneumonia, (units unknown) (unknown) (unknown) (no date) (unknown) (unknown) Discharge Plan (unit s unknown) (unknown) (unknown) (no date) (unknown) (unknown) Discussion: Gopi johnson is feeling much better after initial treatments. There is (units unknown) (unknown) (unknown) (no date) (unknown) (unknown) ED Orders (units unknown) (unknown) (unknown) (no date) (unknown) (unknown) ER Physician: Anneliese Moore MD (units unknown) (unknown) (unknown) (no date) (unknown) (unknown) Emergency Report (un its unknown) (unknown) (unknown) (no date) (unknown) (unknown) Entero/Rhino ( PCR) Detected H (Not Detect) (units unknown) (unknown) (unknown) (no date) (unknown) (unknown) Exam documente d above, pertinent findings include: (units unknown) (unknown) (unknown) (no date) (unknown) (unknown) Exam (units unknown) (unknown) (unknown) (no date) (unknown) (unknown) Extremities: N o trauma, well perfused (units unknown) (unknown) (unknown) (no date) (unknown) (unknown) Fatigue and mi nor scattered wheezing with persistent dry cough (units unknown) (unknown) (unknown) (no date) (unknown) (unknown) General (units unknown) (unknown) (unknown) (no date) (unknown) (unknown) General: Fatig ued appearing but in no acute distress. Able to give a complete (units unknown) (unknown) (unknown) (no date) (unknown) (unknown) HEENT: Moist m ucous membranes, normal sclera with reactive pupils, (units unknown) (unknown) (unknown) (no date) (unknown) (unknown) HPI - General Adult (units unknown) (unknown) (unknown) (no date) (unknown) (unknown) HPI narrative: (unit s unknown) (unknown) (unknown) (no date) (unknown) (unknown) History of Pre sent Illness (units unknown) (unknown) (unknown) (no date) (unknown) (unknown) Human Metapneu movir PCR Not detected (Not Detect) (units unknown) (unknown) (unknown) (no date) (unknown) (unknown) I am going to give you 5 additional days of prednisone to help with (units unknown) (unknown) (unknown) (no date) (unknown) (unknown) I have also gi mita you a prescription for Tessalon Perles to help suppress the (units unknown) (unknown) (unknown) (no date) (unknown) (unknown) I suspect that the persistent cough after the rhino virus is due to mild (units unknown) (unknown) (unknown) (no date) (unknown) (unknown) If you find th at you are getting worse or develop any new symptoms, please feel (units unknown) (unknown) (unknown) (no date) (unknown) (unknown) Influenza Type A (PCR) Not detected (Not Detect) (units unknown) (unknown) (unknown) (no date) (unknown) (unknown) Influenza Type B (PCR) Not detected (Not Detect) (units unknown) (unknown) (unknown) (no date) (unknown) (unknown) Initial Vital Signs (units unknown) (unknown) (unknown) (no date) (unknown) (unknown) Initial Vital Signs: (units unknown) (unknown) (unknown) (no date) (unknown) (unknown) Instructions: DI for Viral Upper Respiratory Infection -- Adult (units unknown) (unknown) (unknown) (no date) (unknown) (unknown) [facility] and was given 3 days of prednisone at the onset of her symptoms (units unknown) (unknown) (unknown) (no date) (unknown) (unknown) [address] [address] (units unknown) (unknown) (unknown) (no date) (unknown) (unknown) Lab Data (units unknown) (unknown) (unknown) (no date) (unknown) (unknown) Lab Results (units unknown) (unknown) (unknown) (no date) (unknown) (unknown) Lab Test resul ts independently reviewed as above. Pertinent findings: PCR (units unknown) (unknown) (unknown) (no date) (unknown) (unknown) Labs: (units unknown) (unknown) (unknown) (no date) (unknown) (unknown) M. pneumoniae (PCR) Not detected (Not Detect) (units unknown) (unknown) (unknown) (no date) (unknown) (unknown) MDM Narrative (units unknown) (unknown) (unknown) (no date) (unknown) (unknown) Medical Decisi on Making (units unknown) (unknown) (unknown) (no date) (unknown) (unknown) Medical decisi on making narrative: (units unknown) (unknown) (unknown) (no date) (unknown) (unknown) Medication Instructions Recorded (units unknown) (unknown) (unknown) (no date) (unknown) (unknown) Mode of arriva l: Ambulatory (units unknown) (unknown) (unknown) (no date) (unknown) (unknown) Narrative: (units unknown) (unknown) (unknown) (no date) (unknown) (unknown) Neck: No JVD, supple, no cervical adenopathy (units unknown) (unknown) (unknown) (no date) (unknown) (unknown) Neurologic: Gr ossly neurologically intact with no obvious asymmetries or (units unknown) (unknown) (unknown) (no date) (unknown) (unknown) New (units unknown) (unknown) (unknown) (no date) (unknown) (unknown) No Known Drug Allergies Allergy Verified 12/16/22 20:15 (units unknown) (unknown) (unknown) (no date) (unknown) (unknown) Ordered: (units unknown) (unknown) (unknown) (no date) (unknown) (unknown) Orders (units unknown) (unknown) (unknown) (no date) (unknown) (unknown) Oxygen Deliver y Method Room Air 12/16/22 20:15 (units unknown) (unknown) (unknown) (no date) (unknown) (unknown) Oxygen Deliver y Method Room Air Room Air (units unknown) (unknown) (unknown) (no date) (unknown) (unknown) Parainfluenza 1 (PCR) Not detected (Not Detect) (units unknown) (unknown) (unknown) (no date) (unknown) (unknown) Parainfluenza 2 (PCR) Not detected (Not Detect) (units unknown) (unknown) (unknown) (no date) (unknown) (unknown) Parainfluenza 3 (PCR) Not detected (Not Detect) (units unknown) (unknown) (unknown) (no date) (unknown) (unknown) Parainfluenza 4 (PCR) Not detected (Not Detect) (units unknown) (unknown) (unknown) (no date) (unknown) (unknown) Patient Disposition: Home (units unknown) (unknown) (unknown) (no date) (unknown) (unknown) Patient History (uni ts unknown) (unknown) (unknown) (no date) (unknown) (unknown) Patient: Dimitri Tejeda MR#: [id number] (units unknown) (unknown) (unknown) (no date) (unknown) (unknown) Pertinent posi tive and negative findings as per HPI (units unknown) (unknown) (unknown) (no date) (unknown) (unknown) Prescriptions were sent to [facility] in [place] (units unknown) (unknown) (unknown) (no date) (unknown) (unknown) Prescriptions: (unit s unknown) (unknown) (unknown) (no date) (unknown) (unknown) Previous Rx's (units unknown) (unknown) (unknown) (no date) (unknown) (unknown) Psych: [place] t[place], appropriate insight and affect (units unknown) (unknown) (unknown) (no date) (unknown) (unknown) Pulse Oximetry 98 12/16/22 20:15 (units unknown) (unknown) (unknown) (no date) (unknown) (unknown) Pulse Oximetry 98 98 (units unknown) (unknown) (unknown) (no date) (unknown) (unknown) Pulse Rate 74 12/16/22 20:15 (units unknown) (unknown) (unknown) (no date) (unknown) (unknown) Pulse Rate 74 68 (un its unknown) (unknown) (unknown) (no date) (unknown) (unknown) Qualifiers: (units unknown) (unknown) (unknown) (no date) (unknown) (unknown) RSV (PCR) Not detected (Not Detect) (units unknown) (unknown) (unknown) (no date) (unknown) (unknown) Referrals: (units unknown) (unknown) (unknown) (no date) (unknown) (unknown) Related Data (units unknown) (unknown) (unknown) (no date) (unknown) (unknown) Respiratory Pa deborah (Film Array) Stat (units unknown) (unknown) (unknown) (no date) (unknown) (unknown) Respiratory Ra te 16 12/16/22 20:15 (units unknown) (unknown) (unknown) (no date) (unknown) (unknown) Respiratory Ra te 16 18 (units unknown) (unknown) (unknown) (no date) (unknown) (unknown) Respiratory: L ungs with minor scattered wheezing in all lung almanzar. No (units unknown) (unknown) (unknown) (no date) (unknown) (unknown) Review of Systems (u nits unknown) (unknown) (unknown) (no date) (unknown) (unknown) Rhinovirus infection (units unknown) (unknown) (unknown) (no date) (unknown) (unknown) SARS-CoV-2 (PC R) Not detected (Not Detecte) (units unknown) (unknown) (unknown) (no date) (unknown) (unknown) Signed By: (units unknown) (unknown) (unknown) (no date) (unknown) (unknown) Skin: Warm and dry, no rashes (units unknown) (unknown) (unknown) (no date) (unknown) (unknown) Smoking Status : Never smoker (units unknown) (unknown) (unknown) (no date) (unknown) (unknown) Social History (unit s unknown) (unknown) (unknown) (no date) (unknown) (unknown) Source: patient (uni ts unknown) (unknown) (unknown) (no date) (unknown) (unknown) Stand Alone Fo guru: Patient Portal/API (units unknown) (unknown) (unknown) (no date) (unknown) (unknown) Stated complai nt: Sick for two weeks, chest cold (units unknown) (unknown) (unknown) (no date) (unknown) (unknown) Substance Use Type: does not use (units unknown) (unknown) (unknown) (no date) (unknown) (unknown) Temperature 97 .4 F L 12/16/22 20:15 (units unknown) (unknown) (unknown) (no date) (unknown) (unknown) Temperature 97 .4 F L 97.9 F (units unknown) (unknown) (unknown) (no date) (unknown) (unknown) Cheli Diaz (unit s unknown) (unknown) (unknown) (no date) (unknown) (unknown) Thank you for coming in today (units unknown) (unknown) (unknown) (no date) (unknown) (unknown) Time Seen by Provider: 12/16/22 23:51 (units unknown) (unknown) (unknown) (no date) (unknown) (unknown) Treatments: Albuterol MDI 4 puffs with spacer, oral prednisone 60 mg and (units unknown) (unknown) (unknown) (no date) (unknown) (unknown) URI type: unspecified URI Qualified Code(s): J06.9 - Acute upper respiratory (units unknown) (unknown) (unknown) (no date) (unknown) (unknown) Upper respirat ory infection (units unknown) (unknown) (unknown) (no date) (unknown) (unknown) Vital Signs - 8 hr ( units unknown) (unknown) (unknown) (no date) (unknown) (unknown) Vital Signs (units unknown) (unknown) (unknown) (no date) (unknown) (unknown) Vital signs: (units unknown) (unknown) (unknown) (no date) (unknown) (unknown) X patient was diagnosed with upper respiratory infection and was not prescribed (units unknown) (unknown) (unknown) (no date) (unknown) (unknown) XR chest 2V Stat (un its unknown) (unknown) (unknown) (no date) (unknown) (unknown) Nguyen Jordan PA-C [Primary Care Provider] (units unknown) (unknown) (unknown) (no date) (unknown) (unknown) Your exam was actually fairly reassuring. You have some minor wheezing but no (units unknown) (unknown) (unknown) (no date) (unknown) (unknown) Your viral garcia el was positive for rhino virus. (units unknown) (unknown) (unknown) (no date) (unknown) (unknown) a mild compone nt of reactive airway disease that is contributing to the (units unknown) (unknown) (unknown) (no date) (unknown) (unknown) abnormalities (units unknown) (unknown) (unknown) (no date) (unknown) (unknown) and coherent history. Well-nourished well-developed (units unknown) (unknown) (unknown) (no date) (unknown) (unknown) and found that it was quite helpful. At this point she is continuing to have (units unknown) (unknown) (unknown) (no date) (unknown) (unknown) believe this i s still all rhino virus that is continuing to run its course with (units unknown) (unknown) (unknown) (no date) (unknown) (unknown) benzonatate 10 0 mg capsule 100 mg PO TID PRN cough #20 caps 12/17/22 (units unknown) (unknown) (unknown) (no date) (unknown) (unknown) benzonatate 10 0 mg capsule (units unknown) (unknown) (unknown) (no date) (unknown) (unknown) but not overt diarrhea. There is no blood in her stool. (units unknown) (unknown) (unknown) (no date) (unknown) (unknown) cardiomyopathy (unit s unknown) (unknown) (unknown) (no date) (unknown) (unknown) cough so that you are able to get some sleep. (units unknown) (unknown) (unknown) (no date) (unknown) (unknown) coughing, head fullness, dyspnea with exertion no orthopnea no chest pain or (units unknown) (unknown) (unknown) (no date) (unknown) (unknown) dispensed an antibiotic. (satisfies MIPS performance) (units unknown) (unknown) (unknown) (no date) (unknown) (unknown) end, we will recommend 5 days of steroids, will send her home with a albuterol (units unknown) (unknown) (unknown) (no date) (unknown) (unknown) evidence of bacterial pneumonia or anything that would require antibiotics today (units unknown) (unknown) (unknown) (no date) (unknown) (unknown) free to return to the emergency department for further evaluation. (units unknown) (unknown) (unknown) (no date) (unknown) (unknown) given, questio ns are answered and she is safe for discharge home (units unknown) (unknown) (unknown) (no date) (unknown) (unknown) infection, unspecified (units unknown) (unknown) (unknown) (no date) (unknown) (unknown) inflammation. I have given you an albuterol inhaler with spacer. I would (units unknown) (unknown) (unknown) (no date) (unknown) (unknown) meter dose inh aler and Tessalon Perles to help with the cough. Reassurance is (units unknown) (unknown) (unknown) (no date) (unknown) (unknown) no evidence of bacterial pneumonia or other secondary bacterial infection. I (units unknown) (unknown) (unknown) (no date) (unknown) (unknown) of smoking pineda s not currently smoke has not been diagnosed with asthma but mild (units unknown) (unknown) (unknown) (no date) (unknown) (unknown) okay to use ibuprofen or Tylenol to help with pain or discomfort. (units unknown) (unknown) (unknown) (no date) (unknown) (unknown) palpitations. She has not had any fevers recently. She noted some loose stool (units unknown) (unknown) (unknown) (no date) (unknown) (unknown) persistent dry irritating cough that is keeping her awake at night. To that (units unknown) (unknown) (unknown) (no date) (unknown) (unknown) prednisone 20 mg tablet 20 mg PO DAILY #5 tabs 12/17/22 (units unknown) (unknown) (unknown) (no date) (unknown) (unknown) prednisone 20 mg tablet (units unknown) (unknown) (unknown) (no date) (unknown) (unknown) reactive airwa y disease, likely a left over from your years of smoking (units unknown) (unknown) (unknown) (no date) (unknown) (unknown) recommend usin g 2 puffs every 6 hours as needed for coughing or wheezing. It is (units unknown) (unknown) (unknown) (no date) (unknown) (unknown) rhonchi. Full and symmetrical air movement (units unknown) (unknown) (unknown) (no date) (unknown) (unknown) sinusitis, BANK REPRESENTATIVE D exacerbation, acute coronary syndrome, congestive heart failure, (units unknown) (unknown) (unknown) (no date) (unknown) (unknown) symptoms for t he last 2-1/2 weeks. She notes that she did have a long history (units unknown) (unknown) (unknown) (no date) (unknown) (unknown) testing demonstrates rhino virus. (units unknown) (unknown) Social History date description facility 2022-12-17 00:00 Never smoked tobacco (finding) [facility] Vital Signs date measurement value units 2022-12-16 00:00 BMI 41.5 kg/m2 2022-12-16 00:00 BP_diastolic 86 mmHg 2022-12-16 00:00 BP_systolic 138 mmHg 2022-12-16 00:00 height_metric 154.94 cm 2022-12-16 00:00 height_standard 61 in 2022-12-16 00:00 weight_metric 99.79 kg 2022-12-16 00:00 weight_standard 220 lb 2022-12-17 00:00 heart_rate 72 /min 2022-12-17 00:00 o2_saturation 97 % 2022-12-17 00:00 respiration_rate 16 /min 2022-12-17 00:00 temperature_metric 36.61 C 2022-12-17 00:00 temperature_standard 97.9 F
[2022-12-31 16:23] VITALS: BP 156/80
== END 2022-12-31 16:27 | disposition home or self-care (01) ==
LOC: ED 15:31
DX: F41.9 Anxiety disorder, unspecified (principal)
CPT/HCPCS: 93005; 99283; A9270

== ENCOUNTER 2023-04-10 09:06 | Outpatient (CLI) | payer MEDICAID ==
[2023-04-10 13:03] LABS: BASOPHILS % (AUTO) 0.3 %; EOSINOPHILS # (AUTO) 0.2 10^3/uL (0.0-0.7); EOSINOPHILS % (AUTO) 1.9 %; HCT - HEMATOCRIT 45.3 % (37.0-47.0); HGB - HEMOGLOBIN 14.4 g/dL (12.0-16.0); LYMPHOCYTES # (AUTO) 3.1 10^3/uL (1.5-3.5); LYMPHOCYTES % (AUTO) 34.2 %; MEAN CORPUSCULAR HEMOGLOBIN 28.7 pg (27.0-31.0); MEAN CORPUSCULAR HGB CONC 31.8 g/dL (32.0-36.0); MEAN CORPUSCULAR VOLUME 90.4 fL (81.0-99.0); MEAN PLATELET VOLUME 10.1 fL (7.9-10.8); MONOCYTES # (AUTO) 0.6 10^3/uL (0.0-1.0); MONOCYTES % (AUTO) 6.1 %; NEUTROPHILS # (AUTO) 5.2 10^3/uL (1.5-6.6); NEUTROPHILS % (AUTO) 57.2 %; PLT - PLATELET COUNT 373 10^3/uL (130-450); RED BLOOD COUNT 5.01 10^6/uL (4.20-5.40); RED CELL DISTRIBUTION WIDTH 13.6 % (12.0-15.0); WHITE BLOOD COUNT 9.1 x10^3/uL (4.8-10.8)
[2023-04-10 13:13] LABS: ALBUMIN 4.3 g/dL (3.2-5.5); ALBUMIN/GLOBULIN RATIO 1.3 (1.0-2.2); ALKALINE PHOSPHATASE 51 IU/L (42-121); ALT ALANINE AMINOTRANSFERASE 33 IU/L (10-60); AST ASPARTATE AMINOTRANSFERASE 21 IU/L (10-42); BILIRUBIN,TOTAL 0.4 mg/dL (0.2-1.0); BUN - BLOOD UREA NITROGEN 14 mg/dL (6-20); CALCIUM 9.6 mg/dL (8.5-10.3); CARBON DIOXIDE - CO2 27 mmol/L (21-32); CHLORIDE 104 mmol/L (101-111); CHOL/HDL RATIO 4.6 (<4.4); CHOLESTEROL 241 mg/dL; CREATININE 0.8 mg/dL (0.6-1.3); GFR - MDRD 73 (>89); GLUCOSE 97 mg/dL (74-104); HDL CHOLESTEROL 52 mg/dL; LDL CHOLESTEROL,CALCULATED 162 mg/dL; LDL/HDL RATIO 3.1 (<4.4); POTASSIUM 4.5 mmol/L (3.5-4.5); SODIUM 139 mmol/L (135-145); TOTAL PROTEIN 7.5 g/dL (6.4-8.9); TRIGLYCERIDES 137 mg/dL (48-352); VLDL CHOLESTEROL 27 mg/dL
[2023-04-10 14:16] LABS: THYROID STIMULATING HORMONE 1.69 uIU/mL (0.34-5.60)
== END 2023-04-10 09:07 | disposition home or self-care (01) ==
LOC: LAB.N 09:06
PROVIDERS: ATTEND Physician Assistant Medical
DX: Z00.00 Encounter for general adult medical examination without abnormal findings (principal)
CPT/HCPCS: 36415; 80050; 80061; 83721

== ENCOUNTER 2023-05-04 07:41 | Outpatient (CLI) | payer MEDICAID ==
--- NOTE | 2023-05-04 08:47 | Ultrasound Report ---
PROCEDURE: Aorta Screening INDICATIONS: TOBACCO DEPENDENCE TECHNIQUE: Real time scanning was performed of the aorta and iliac arteries, with image documentatio n. COMPARISON: None. FINDINGS: Aorta: Proximal aortic diameter measures 2.4 x 2.4 cm. Mid-aorta measures 2.1 x 2.2 cm. Distal aor tic diameter is 1.4 x 1.5 cm. Iliac arteries: Right common iliac artery measures 1 x 1.1 cm. Left common iliac artery measures 1. 1 x 1.4 cm. IMPRESSION: 1. No sonographic evidence of abdominal aortic aneurysm. 2. Bilateral common iliac arteries are normal in caliber, where visualized. Recommended intervals for follow-up imaging of ectatic aortas and abdominal aortic aneurysms, per ACR consensus guidelines: 2.5-2.9 cm: 5 years 3.0-3.4 cm: 3 years 3.5-3.9 cm: 2 years 4.0-4.4 cm: 1 year 4.5-4.9 cm: 6 months + endovascular referral 5.0-5.5 cm: 3-6 months + endovascular referral Reviewed by: Arthur Amin MD on 05/04/2023 8:46 AM PDT Approved by: Arthur Amin MD on 05/04/2023 8:46 AM PDT Station ID: [id number]
--- NOTE | 2023-05-04 14:05 | CT Report ---
PROCEDURE: Low Dose Lung Cancer Screen INDICATIONS: TOBACCO DEPENDENCE TECHNIQUE: A CT scan of the chest was performed. Intravenous contrast media was not administered. Images were re corded and evaluated at appropriate window settings. Reformats: axial MIP of the chest, coronal and s agittal. For radiation dose reduction, the following was used: automated exposure control, adjustment of mA and/or kV according to patient size. COMPARISON: None. FINDINGS: Image quality: Excellent. Prior cancer history: No. Lungs and pleura: No pleural effusions. No pneumothorax. Calcified granuloma in the posterior left u pper lobe. A few juxtapleural nodules along the fissures, with smooth margins favoring benign intrapu lmonary lymph nodes. Emphysema which is centrilobular. Mediastinum: Heart size is normal. No pericardial effusion. Borderline dilation of the ascending aort a, measuring 3.9 cm. No mediastinal adenopathy by size criteria. One vessel coronary artery calcific ations. Chest wall and lower neck: Thyroid is unremarkable. No axillary or supraclavicular adenopathy by size . Bones: No aggressive osseous abnormality. Upper Abdomen: Cholelithiasis. IMPRESSION: Lung RAD: 2 - Benign. Recommendation: Continue annual screening in 12 Months with LDCT Non-Lung Significant Findings: Coronary Arterial Calcification - Moderate or Severe. Consider cardiol ogy referral. Cholelithiasis. Reviewed by: Terry Colbert on 05/04/2023 2:03 PM PDT Approved by: Terry Colbert on 05/04/2023 2:03 PM PDT Station ID: [id number]
== END 2023-05-04 07:42 | disposition home or self-care (01) ==
LOC: DI 07:41
PROVIDERS: ATTEND Physician Assistant Medical
DX: Z12.2 Encounter for screening for malignant neoplasm of respiratory organs (principal); Z13.6 Encounter for screening for cardiovascular disorders; F17.210 Nicotine dependence, cigarettes, uncomplicated; K80.20 Calculus of gallbladder without cholecystitis without obstruction; J43.2 Centrilobular emphysema; R91.8 Other nonspecific abnormal finding of lung field

== ENCOUNTER 2023-09-05 12:15 | Outpatient (CLI) | payer MEDICAID ==
--- NOTE | 2023-09-05 18:19 | XRAY Report ---
PROCEDURE: Lumbar Spine 2-3V INDICATIONS: LOW BACK PAIN, UNSPECIFIED TECHNIQUE: 3 views of the lumbar spine were acquired. COMPARISON: None. FINDINGS: Bones: 5 [id number] vertebrae are present. Grade 1 anterolisthesis of L4 on L5. No vertebral b karlene compression fractures. Mild multilevel degenerative changes with osteophytosis, disc height loss and facet arthropathy. No suspicious bony lesions. Soft tissues: Overlying bowel gas pattern is normal. No suspicious soft tissue calcifications. IMPRESSION: 1.No acute fracture or traumatic subluxation of the lumbar spine. 2.Mild multilevel degenerative changes with grade 1 anterolisthesis of L4 on L5. Reviewed by: Arthur Amin MD on 09/05/2023 6:18 PM PST Approved by: Arthur Amin MD on 09/05/2023 6:18 PM PST Station ID: [id number]
== END 2023-09-05 12:30 | disposition home or self-care (01) ==
LOC: DI.N 12:15
PROVIDERS: ATTEND Nurse Practitioner
DX: M47.816 Spondylosis without myelopathy or radiculopathy, lumbar region (principal); M43.16 Spondylolisthesis, lumbar region

== ENCOUNTER 2023-11-28 15:15 | Outpatient (CLI) | payer MEDICAID ==
[2023-11-28 17:22] LABS: BASOPHILS % (AUTO) 0.2 %; EOSINOPHILS # (AUTO) 0.2 10^3/uL (0.0-0.7); HCT - HEMATOCRIT 42.2 % (37.0-47.0); HGB - HEMOGLOBIN 13.7 g/dL (12.0-16.0); LYMPHOCYTES # (AUTO) 2.7 10^3/uL (1.5-3.5); LYMPHOCYTES % (AUTO) 29.7 %; MEAN CORPUSCULAR HEMOGLOBIN 29.3 pg (27.0-31.0); MEAN CORPUSCULAR HGB CONC 32.5 g/dL (32.0-36.0); MEAN CORPUSCULAR VOLUME 90.2 fL (81.0-99.0); MEAN PLATELET VOLUME 10.1 fL (7.9-10.8); MONOCYTES # (AUTO) 0.6 10^3/uL (0.0-1.0); MONOCYTES % (AUTO) 6.7 %; NEUTROPHILS # (AUTO) 5.5 10^3/uL (1.5-6.6); PLT - PLATELET COUNT 345 10^3/uL (130-450); RED BLOOD COUNT 4.68 10^6/uL (4.20-5.40); RED CELL DISTRIBUTION WIDTH 13.5 % (12.0-15.0)
[2023-11-28 17:35] LABS: ALBUMIN 4.3 g/dL (3.2-5.5); ALBUMIN/GLOBULIN RATIO 1.5 (1.0-2.2); BILIRUBIN,TOTAL 0.3 mg/dL (0.2-1.0); CALCIUM 9.9 mg/dL (8.5-10.3); CREATININE 0.9 mg/dL (0.6-1.3); POTASSIUM 4.1 mmol/L (3.5-4.5); TOTAL PROTEIN 7.2 g/dL (6.4-8.9)
== END 2023-11-28 15:30 | disposition home or self-care (01) ==
LOC: LAB.N 15:15
PROVIDERS: ATTEND Physician Assistant
DX: M79.10 Myalgia, unspecified site (principal)
CPT/HCPCS: 36415; 80053; 82550; 85025

== ENCOUNTER 2024-01-11 14:12 | Outpatient (CLI) | payer MEDICAID | END 2024-01-11 23:59 | disposition critical access hospital (66) | LOC: EMS 14:12 | DX: R07.89 Other chest pain (principal) | CPT/HCPCS: A0425; A0429; A0999 ==

== ENCOUNTER 2024-01-11 14:38 | Emergency (ER) | payer MEDICAID ==
[2024-01-11 15:01] LABS: BASOPHILS % (AUTO) 0.2 %; EOSINOPHILS # (AUTO) 0.1 10^3/uL (0.0-0.7); EOSINOPHILS % (AUTO) 1.1 %; HCT - HEMATOCRIT 41.9 % (37.0-47.0); HGB - HEMOGLOBIN 13.7 g/dL (12.0-16.0); LYMPHOCYTES # (AUTO) 2.4 10^3/uL (1.5-3.5); LYMPHOCYTES % (AUTO) 23.8 %; MEAN CORPUSCULAR HEMOGLOBIN 28.7 pg (27.0-31.0); MEAN CORPUSCULAR HGB CONC 32.7 g/dL (32.0-36.0); MEAN CORPUSCULAR VOLUME 87.7 fL (81.0-99.0); MEAN PLATELET VOLUME 9.5 fL (7.9-10.8); MONOCYTES # (AUTO) 0.6 10^3/uL (0.0-1.0); MONOCYTES % (AUTO) 6.3 %; NEUTROPHILS # (AUTO) 6.8 10^3/uL (1.5-6.6); NEUTROPHILS % (AUTO) 68.3 %; PLT - PLATELET COUNT 333 10^3/uL (130-450); RED BLOOD COUNT 4.78 10^6/uL (4.20-5.40); RED CELL DISTRIBUTION WIDTH 13.6 % (12.0-15.0)
--- NOTE | 2024-01-11 15:01 | XRAY Report ---
PROCEDURE: Chest 1V INDICATIONS: chest pain TECHNIQUE: One view of the chest was acquired. COMPARISON: 09/14/2021. FINDINGS: Surgical changes and devices: None. Lungs and pleura: No pleural effusions or pneumothorax. Lungs are clear. Mediastinum: Mediastinal contours appear normal. Heart size is normal. Bones and chest wall: No suspicious bony lesions. Overlying soft tissues appear unremarkable. IMPRESSION: No acute cardiopulmonary process. Reviewed by: Jero Gutierrez MD on 01/11/2024 3:00 PM PDT Approved by: Jero Gutierrez MD on 01/11/2024 3:00 PM PDT Station ID: [id number]
[2024-01-11 15:16] LABS: ALBUMIN 4.1 g/dL (3.2-5.5); ALBUMIN/GLOBULIN RATIO 1.6 (1.0-2.2); BILIRUBIN,TOTAL 0.3 mg/dL (0.2-1.0); CALCIUM 10.1 mg/dL (8.5-10.3); CREATININE 0.8 mg/dL (0.6-1.3); TOTAL PROTEIN 6.7 g/dL (6.4-8.9)
--- NOTE | 2024-01-11 17:14 | ED Physician Documentation ---
History of Present Illness - Stated complaint Stated Complaint: CP - Chief complaint Chief Complaint: Cardiac - Additonal information Additional information: 63-year-old female presents to the emergency department chief complaint chest pain. Reports woke from sleep with burning chest pain with associated belching. Denies shortness of breath, diaphoresis. Denies similar episodes in the past. Review of Systems Constitutional: denies: Fever Eyes: denies: Loss of vision Ears: denies: Loss of hearing Nose: denies: Rhinorrhea / runny nose Throat: denies: Dental pain / toothache Cardiac: reports: Chest pain / pressure. denies: Palpitations Respiratory: denies: Dyspnea GI: denies: Abdominal Pain, Nausea, Vomiting, Constipation : denies: Dysuria PD PAST MEDICAL HISTORY - Past Medical History Cardiovascular: None Respiratory: None Neuro: None Endocrine/Autoimmune: None GI: GERD CELL COVERER: None : None HEENT: None Psych: Depression Musculoskeletal: None Derm: None - Past Surgical History Past Surgical History: No - Present Medications Home Medications: Ambulatory Orders Medication Instructions Recorded Confirmed Sertraline HCl 100 mg PO DAILY 12/31/22 01/11/24 Omeprazole 40 mg PO DAILY #30 cap 01/11/24 - Allergies Allergies/Adverse Reactions: Allergies Allergy/AdvReac Type Severity Reaction Status Date / Time No Known Drug Allergies Allergy Verified 01/11/24 14:56 - Social History Does the pt smoke?: Yes Smoking Status: Current every day smoker Does the pt drink ETOH?: No Does the pt have substance abuse?: No Substance Use and Type: Marijuana - Immunizations Immunizations are current?: Yes - POLST Patient has POLST: No PD ED PE NORMAL - Vitals Vital signs reviewed: Yes - General General: Alert and oriented X 3, No acute distress, Well developed/nourished, Other - HEENT HEENT: Atraumatic, PERRL, EOMI, Ears normal, Moist mucous membranes, Pharynx benign - Neck Neck: Supple, no meningeal sign, No bony TTP, No adenopathy, Thyroid normal, No JVD - Cardiac Cardiac: RRR, No murmur, No gallop, Strong equal pulses - Respiratory Respiratory: No respiratory distress, Clear bilaterally - Abdomen Abdomen: Normal bowel sounds, Non tender - Female Female : Deferred - Rectal Rectal: Deferred - Back Back: No CVA TTP - Derm Derm: Normal color - Extremities Extremities: No deformity Results - Vitals Vitals: Vital Signs - 24 hr 01/11/24 14:48 Temperature 35.4 C L Heart Rate 71 Respiratory 18 Rate Blood Pressure 138/86 H O2 Saturation 98 Oxygen O2 Source Room air - EKG (time done) 1507 EKG releavant findings:: EKG personally interpreted by author of this note. Relevant findings are: Sinus rhythm with rate 60 bpm. Normal axis. Normal ME, QRS, QTc intervals. No ST segment elevations or T wave inversions. - Labs Labs: Laboratory Tests 01/11/24 01/11/24 01/11/24 14:55 14:55 14:55 WBC 10.0 RBC 4.78 Hgb 13.7 Hct 41.9 MCV 87.7 MCH 28.7 MCHC 32.7 RDW 13.6 Plt Count 333 MPV 9.5 Neut # (Auto) 6.8 H Lymph # (Auto) 2.4 Bibb # (Auto) 0.6 Eos # (Auto) 0.1 Baso # (Auto) 0.0 Absolute Nucleated RBC 0.00 Nucleated RBC % 0.0 Sodium 139 Potassium 4.0 Chloride 107 Carbon Dioxide 24 Anion Gap 8.0 BUN 13 Creatinine 0.8 Estimated GFR (MDRD) 73 L Glucose 116 H Calcium 10.1 Total Bilirubin 0.3 AST 19 ALT 27 Alkaline Phosphatase 39 L Troponin I High Sens 4.5 Total Protein 6.7 Albumin 4.1 Globulin 2.6 Albumin/Globulin Ratio 1.6 Lipase 12 PD Medical Decision Making - ED course Complexity details: reviewed results, re-evaluated patient, considered differential, d/w patient ED course: 63-year-old female presents to the emergency department chief complaint chest pain. Reported burning chest pain that began earlier this morning. Did endorse for some increased intake of "junk foods" that occurred yesterday. Reports a history of gastric reflux. Denies hypertension, dyslipidemia, diabetes. Is overall low risk on heart scoring and she has negative troponin and a nonacute EKG. Similarly she is low risk Wells PERC negative. Her chest x-ray does not show pneumothorax, hemothorax or mediastinal widening. She is treated with Protonix here in the emergency department with some symptomatic relief. Will discharge on course Protonix and encourage prompt follow-up with primary care versus prompt return to the emergency department for any new or worsening symptoms. Departure - Departure Disposition: Home, Self Care Clinical Impression: Chest pain Qualifiers: Chest pain type: unspecified Qualified Code(s): R07.9 - Chest pain, unspecified GERD (gastroesophageal reflux disease) Qualifiers: Esophagitis presence: without esophagitis Qualified Code(s): K21.9 - Gastro- esophageal reflux disease without esophagitis Instructions: ED Chest Pain Atypical Unkn Cause, GERD Dc Prescriptions: Omeprazole 40 mg PO DAILY #30 cap Comments: Thank you for allowing us to care for you today at [facility]. Today in the emergency department you were evaluated for any possible dangerous or life-threatening medical emergency. The test performed in the emergency department today including your chest x-ray, EKG and blood work were all very reassuring. As we discussed I do believe that a component of your pain is due to gastric reflux I would like you to begin a course of an oral antiacid. Please follow-up with your primary care doctor soon as possible. If your pain returns or worsens at any time please return to the emergency department.
[2024-01-11] MEDS: PANTOPRAZOLE 40 MG VIAL IVP STA (17:17)
[2024-01-11 17:45] VITALS: BP 133/78; O2SAT 99
== END 2024-01-11 17:36 | disposition home or self-care (01) ==
LOC: EDUNIT# → ED 14:38
DX: R07.9 Chest pain, unspecified (principal); K21.9 Gastro-esophageal reflux disease without esophagitis; F17.290 Nicotine dependence, other tobacco product, uncomplicated
CPT/HCPCS: 36415; 80053; 83690; 84484; 85025; 93005; 96374; 99284

== ENCOUNTER 2024-02-08 13:25 | Outpatient (CLI) | payer MEDICAID | END 2024-02-08 13:26 | disposition home or self-care (01) | LOC: LAB.N 13:25 | PROVIDERS: ATTEND Physician Assistant Medical | DX: Z53.9 Procedure and treatment not carried out, unspecified reason (principal) ==